=== PATIENT | male | born 1975 | race Two or more races ===

== ENCOUNTER 2018-12-06 08:12 | Inpatient (IN) | payer SELFPAY ==
[2018-12-06] VITALS (8 sets, daily range): BP systolic 98–111; BP diastolic 58–71
[~2018-12-06] VITALS: Ht 170.2 cm; Wt 81.6 kg
[2018-12-06] MEDS ORDERED: IV NORMAL SALINE 1000ML BAG 1,000 ML IV SCH (08:45)
--- NOTE | 2018-12-06 08:55 | PHYS DOC ---
Adult General Chief Complaint Chief Complaint: ABDOMINAL PAIN HPI HPI Patient is a 42 year old male who presents with right lower Abdominal pain that radiates throughout general abdomen x 2 days. Rates his pain 10 out 10 and states it is sharp. Patient last took Advil this morning at 6 AM. Review of Systems Review of Systems Constitutional: Denies fever or chills [] Eyes: Denies change in visual acuity, redness, or eye pain [] HENT: Denies nasal congestion or sore throat [] Respiratory: Denies cough or shortness of breath [] Cardiovascular: No additional information not addressed in HPI [] GI: RLQ abdominal pain, denies nausea, vomiting, bloody stools or diarrhea [] : Denies dysuria or hematuria [] Musculoskeletal: Denies back pain or joint pain [] Integument: Denies rash or skin lesions [] Neurologic: Denies headache, focal weakness or sensory changes [] All other systems were reviewed and found to be within normal limits, except as documented in this note. Current Medications Current Medications Current Medications Medications (Trade) Dose Ordered Sig/Formerly [facility] Start Time Stop Time Status Last Admin Dose Admin Fentanyl Citrate (Fentanyl 2ml Vial) 50 mcg 1X ONCE 12/06/18 10:45 12/06/18 10:49 DC 12/06/18 11:11 50 MCG Info (CONTRAST GIVEN -- Rx MONITORING) 1 each PRN DAILY PRN 12/06/18 09:15 12/08/18 09:14 Iohexol (Omnipaque 300 Mg/ml) 75 ml 1X ONCE 12/06/18 09:15 12/06/18 09:16 DC 12/06/18 09:15 75 ML Ondansetron HCl (Zofran) 4 mg 1X ONCE 12/06/18 09:30 12/06/18 09:31 DC 12/06/18 09:18 4 MG Sodium Chloride 1,000 ml @ 1,000 mls/hr 1X ONCE 12/06/18 10:45 12/06/18 11:44 DC Allergies Allergies Allergies Coded Allergies Type Severity Reaction Last Updated Verified No Known Drug Allergies 12/06/18 No Physical Exam Physical Exam Constitutional: Well developed, well nourished, no acute distress, non-toxic appearance. [] HENT: Normocephalic, atraumatic, bilateral external ears normal, oropharynx moist, no oral exudates, nose normal. [] Eyes: PERRLA, EOMI, conjunctiva normal, no discharge. [] Neck: Normal range of motion, no tenderness, supple, no stridor. [] Cardiovascular:Heart rate regular rhythm, no murmur [] Lungs & Thorax: Bilateral breath sounds clear to auscultation [] Abdomen: Bowel sounds normal, soft, RLQ tenderness, no masses, no pulsatile masses. [] Skin: Warm, dry, no erythema, no rash. [] Back: No tenderness, no CVA tenderness. [] Extremities: No tenderness, no cyanosis, no clubbing, ROM intact, no edema. [] Neurologic: Alert and oriented X 3, normal motor function, normal sensory function, no focal deficits noted. [] Psychologic: Affect normal, judgement normal, mood normal. [] Current Patient Data Vital Signs Vital Signs Date Time Temp Pulse Resp B/P (MAP) Pulse Ox O2 Delivery O2 Flow Rate FiO2 12/06/18 10:45 82 18 125/73 (90) 97 Room Air 12/06/18 08:46 97.9 97.9 Lab Values Laboratory Tests Test 12/06/18 09:10 12/06/18 09:15 Urine Collection Type Unknown Urine Color Tiffany Urine Clarity Clear Urine pH 6.0 Urine Specific [place] 1.020 Urine Protein Negative mg/dL (NEG-TRACE) Urine Glucose (UA) Negative mg/dL (NEG) Urine Ketones (Stick) Negative mg/dL (NEG) Urine Blood Negative (NEG) Urine Nitrite Negative (NEG) Urine Bilirubin Negative (NEG) Urine Urobilinogen Dipstick 0.2 mg/dL (0.2 mg/dL) Urine Leukocyte Esterase Negative (NEG) Urine RBC Occ /HPF (0-2) Urine WBC 1-4 /HPF (0-4) Urine Squamous Epithelial Cells Occ /LPF Urine Bacteria Few /HPF (0-FEW) Urine Mucus Marked /LPF White Blood Count 17.3 x10^3/uL (4.0-11.0) H Red Blood Count 5.00 x10^6/uL (4.30-5.70) Hemoglobin 15.7 g/dL (13.0-17.5) Hematocrit 46.0 % (39.0-53.0) Mean Corpuscular Volume 92 fL (79-100) Mean Corpuscular Hemoglobin 31 pg (25-35) Mean Corpuscular Hemoglobin Concent 34 g/dL (31-37) Red Cell Distribution Width 13.0 % (11.5-14.5) Platelet Count 208 x10^3/uL (140-400) Neutrophils (%) (Auto) 79 % (31-73) H Lymphocytes (%) (Auto) 11 % (24-48) L Monocytes (%) (Auto) 9 % (0-9) Eosinophils (%) (Auto) 1 % (0-3) Basophils (%) (Auto) 0 % (0-3) Neutrophils # (Auto) 13.6 x10^3uL (1.8-7.7) H Lymphocytes # (Auto) 1.9 x10^3/uL (1.0-4.8) Monocytes # (Auto) 1.6 x10^3/uL (0.0-1.1) H Eosinophils # (Auto) 0.2 x10^3/uL (0.0-0.7) Basophils # (Auto) 0.0 x10^3/uL (0.0-0.2) Platelet Estimate Pending Sodium Level 140 mmol/L (136-145) Potassium Level 3.8 mmol/L (3.5-5.1) Chloride Level 100 mmol/L (98-107) Carbon Dioxide Level 29 mmol/L (21-32) Anion Gap 11 (6-14) Blood Urea Nitrogen 8 mg/dL (8-26) Creatinine 1.0 mg/dL (0.7-1.3) Estimated GFR (Cockcroft-Gault) 82.3 BUN/Creatinine Ratio 8 (6-20) Glucose Level 106 mg/dL (70-99) H Calcium Level 8.9 mg/dL (8.5-10.1) Total Bilirubin 1.0 mg/dL (0.2-1.0) Aspartate Amino Transferase (AST) 19 U/L (15-37) Alanine Aminotransferase (ALT) 26 U/L (16-63) Alkaline Phosphatase 82 U/L (46-116) Total Protein 8.0 g/dL (6.4-8.2) Albumin 3.4 g/dL (3.4-5.0) Albumin/Globulin Ratio 0.7 (1.0-1.7) L Lipase 54 U/L (73-393) L Laboratory Tests 12/06/18 09:15 Laboratory Tests 12/06/18 09:15 EKG EKG [] Radiology/Procedures Radiology/Procedures [] Impressions: [facility] [address] [place] [address] IMAGING REPORT Signed PATIENT: CARMEL MALCOLM ACCOUNT: [id number] : 1975 LOCATION: ER AGE: 42 SEX: M EXAM STATUS: REG ER ORD. PHYSICIAN: ALICIA BUNDY APRN REASON: Right lower abd pain PROCEDURE: CT ABD PELV W/ IV CONTRST ONLY Examination: CT ABD PELV W/ IV CONTRST ONLY History: RLQ ABDOMEN PAIN, H/O KIDNEY STONES
IV OMNI 300 75 MLS Comparison/Correlation: None Findings: Axial images of the abdomen and pelvis were obtained following IV contrast. Sagittal and coronal reformatted images were provided. Linear atelectasis involving the right lung base is evident. Minimal linear atelectasis of the left lung base is present. Calcified granuloma involves the right middle lobe basilar aspect. Liver, spleen, pancreas, and adrenal glands are normal. Left kidney is normal. Gallbladder fossa is normal. Several calculi are present involving the right renal inferior pole calyces. Largest of these is 0.9 cm diameter. Edema superficially about right Gerota's fascia is noted. Right paracolic gutter stranding is notable. The appendix is distended distally. There is question of a gas collection along the posterior aspect of the distal appendix best seen on axial image 54 of series 2. This measures up to 1.6 cm. No enhancing collection. There is suggestion of edema or ill-defined small fluid collection measuring 1.4 cm x 0.7 cm anterior to the right psoas muscle at the upper pelvic level. No bowel obstruction or extraluminal gas. Urinary bladder is unremarkable. Bony structures are unremarkable for age. Impression: Acute appendicitis. Possibility of localized perforation is raised. No definite or significant abscess collection. Nonobstructive right renal lower pole calyceal calculi. Minimal linear atelectasis at the lung bases greater on the right. On 12/06/2018 at 10:22 AM, results reported to nurse practitioner assigned to the patient by the name of Alicia. PQRS Compliance Statement: One or more of the following individualized dose reduction techniques were utilized for this examination: 1. Automated exposure control 2. Adjustment of the mA and/or kV according to patient size 3. Use of iterative reconstruction technique Electronically signed by: Guerrero Hickman MD (12/06/2018 10:24 AM) [id number] DICTATED and SIGNED BY: GUERRERO HICKMAN MD DATE: 12/06/18 1009 Course & Med Decision Making Course & Med Decision Making Patient is a 42 year old male who presents with right lower Abdominal pain that radiates throughout general abdomen x 2 days. Rates his pain 10 out 10 and states it is sharp. Patient last took Advil this morning at 6 AM. Patient denies nausea, vomiting, diarrhea, constipation, fever, dysuria, chest pain, shortness of air. Lungs are clear to auscultation lobes. Heart rate regular without murmur. Patient has no peripheral edema. Abdomen is soft and tender only to the right lower quadrant. Pain is worse with pressure from palpation. Pain does not get worse when I release pressure from palpation. Alert and oriented. Skin pink warm and dry. Mucus membranes are moist. Weeks in full clear sentences. Ambulatory with a steady gait. Afebrile. Vital signs within normal limits. CT shows Acute appendicitis. Possibility of localized perforation is raised. No definite or significant abscess collection. Nonobstructive right renal lower pole calyceal calculi. Minimal linear atelectasis at the lung bases greater on the right. The radiologist called and stated results to me personally. Patient will be started on more IV fluids and will remain nothing by mouth. I will start him on Zosyn antibiotic. 1040: I went in and told the patient of the results and asked when the last time he ate or drank was and the girlfriend states she just gave him a piece of a donut to eat at about 1020. I reminded the patient and family that the patient can not eat or drink. 1052: I have spoken to Dr Beck about the patient and Dr Correa for admission. Dragon Disclaimer Dragon Disclaimer This electronic medical record was generated, in whole or in part, using a voice recognition dictation system. Departure Departure Impression: Primary Impression: Acute appendicitis Disposition: ADMITTED INPATIENT Admitting Physician: Other Condition: STABLE Referrals: NO PCP (PCP) Problem Qualifiers Primary Impression: Acute appendicitis Acute appendicitis type: unspecified acute appendicitis type Qualified Codes : K35.80 - Unspecified acute appendicitis ALICIA BUNDY CLAIM REVIEW MEDICAL DIRECTOR Dec 06, 2018 08:55
[2018-12-06] MEDS ORDERED: IOHEXOL 300 MG/ML 100ML VIAL. IV ONE (09:15)
[2018-12-06] MEDS ORDERED: CONTRAST GIVEN. MC PRN (09:15)
[2018-12-06] MEDS ORDERED: ONDANSETRON PF 4 MG/2 ML VIAL. IV ONE (09:30)
[2018-12-06] MEDS ORDERED: fentaNYL PF VIAL 100 MCG/2 ML VIAL IV ONE ×2 (09:30→10:45)
[2018-12-06 09:38] LABS: BASO % 0 % (0-3); EOS # 0.2 x10^3/uL (0.0-0.7); EOS % 1 % (0-3); HEMOGLOBIN 15.7 g/dL (13.0-17.5); LYMPH # 1.9 x10^3/uL (1.0-4.8); LYMPH % 11 % (24-48); MEAN CORPUSCULAR HEMOGLOBIN 31 pg (25-35); MEAN CORPUSCULAR HGB CONC 34 g/dL (31-37); MEAN CORPUSCULAR VOLUME 92 fL (79-100); MONO # 1.6 x10^3/uL (0.0-1.1); MONO % 9 % (0-9); NEUT # 13.6 x10^3uL (1.8-7.7); NEUT % 79 % (31-73); PLATELET COUNT 208 x10^3/uL (140-400); WHITE BLOOD COUNT 17.3 x10^3/uL (4.0-11.0)
[2018-12-06 09:40] LABS: BILIRUBIN,URINE NEGATIVE (NEG); CLARITY,URINE CLEAR; COLOR,URINE AMBER; NITRITE,URINE NEGATIVE (NEG); PROTEIN,URINE NEGATIVE (NEG-TRACE); UROBILINOGEN,URINE 0.2 mg/dL (0.2 mg/dL)
[2018-12-06 09:41] LABS: CALCIUM 8.9 mg/dL (8.5-10.1); GFR 82.3; POTASSIUM 3.8 mmol/L (3.5-5.1)
[2018-12-06 09:47] LABS: ALBUMIN 3.4 g/dL (3.4-5.0); ALBUMIN/GLOBULIN RATIO 0.7 (1.0-1.7)
[2018-12-06 09:55] LABS: BACTERIA,URINE FEW /HPF (0-FEW); RBC,URINE OCC /HPF (0-2); SQUAMOUS EPITHELIAL CELL,UR OCC /LPF
--- NOTE | 2018-12-06 10:27 | RAD ---
Examination: CT ABD PELV W/ IV CONTRST ONLY History: RLQ ABDOMEN PAIN, H/O KIDNEY STONES
IV OMNI 300 75 MLS Comparison/Correlation: None Findings: Axial images of the abdomen and pelvis were obtained following IV contrast. Sagittal and coronal reformatted images were provided. Linear atelectasis involving the right lung base is evident. Minimal linear atelectasis of the left lung base is present. Calcified granuloma involves the right middle lobe basilar aspect. Liver, spleen, pancreas, and adrenal glands are normal. Left kidney is normal. Gallbladder fossa is normal. Several calculi are present involving the right renal inferior pole calyces. Largest of these is 0.9 cm diameter. Edema superficially about right Gerota's fascia is noted. Right paracolic gutter stranding is notable. The appendix is distended distally. There is question of a gas collection along the posterior aspect of the distal appendix best seen on axial image 54 of series 2. This measures up to 1.6 cm. No enhancing collection. There is suggestion of edema or ill-defined small fluid collection measuring 1.4 cm x 0.7 cm anterior to the right psoas muscle at the upper pelvic level. No bowel obstruction or extraluminal gas. Urinary bladder is unremarkable. Bony structures are unremarkable for age. Impression: Acute appendicitis. Possibility of localized perforation is raised. No definite or significant abscess collection. Nonobstructive right renal lower pole calyceal calculi. Minimal linear atelectasis at the lung bases greater on the right. On 12/06/2018 at 10:22 AM, results reported to nurse practitioner assigned to the patient by the name of Alicia. PQRS Compliance Statement: One or more of the following individualized dose reduction techniques were utilized for this examination: 1. Automated exposure control 2. Adjustment of the mA and/or kV according to patient size 3. Use of iterative reconstruction technique Electronically signed by: Guerrero Jackson MD (12/06/2018 10:24 AM) [id number]
[2018-12-06] MEDS ORDERED: IV NORMAL SALINE 1000ML BAG 1,000 ML IV ONE (10:45)
[2018-12-06] MEDS ORDERED: ONDANSETRON PF 4 MG/2 ML VIAL. IV PRN ×2 (11:00→20:45)
[2018-12-06] MEDS ORDERED: PIPERACILLIN/TAZOBACTAM 3.375 GM in IV NORMAL SALINE 50ML 50 ML IV ONE (11:00)
[2018-12-06] MEDS: IV NORMAL SALINE 1000ML BAG 1,000 ML IV SCH ×2 (11:09→23:19)
--- NOTE | 2018-12-06 12:17 | PDOC1 ---
History and Physical Date of Admission Date of Admission DATE: 12/06/18 TIME: 12:04 Identification/Chief Complaint Chief Complaint Abdominal Pain Source Source: Caregiver, Chart review, Patient History of Present Illness History of Present Illness Mr Mon is a 42 yo male w/ PMHx recurrent right nephrolithiasis who presents with 1 day history of diffuse abdominal pain worse periumbilical and RLQ. Rates his pain 10 out 10 and states it is sharp. Patient last took Advil this morning at 6 AM. In ED notably with leukocytosis 17.[address] with [address] shift and CT abdomen/pelvis with acute appendicitis. General surgery called by ED. Past Medical History Cardiovascular: No pertinent hx Pulmonary: No pertinent hx GI: No pertinent hx Heme/Onc: No pertinent hx Hepatobiliary: No pertinent hx Psych: No pertinent hx Rheumatologic: No pertinent hx Infectious disease: No pertinent hx ENT: No pertinent hx Renal/: Other (Nephrolithiasis) Endocrine: No pertinent hx Dermatology: No pertinent hx Past Surgical History Past Surgical History: Other (ESWL on right) Family History Family History: High Cholestrol, Hypertension Social History Smoke: No ALCOHOL: rare Drugs: None Current Medications Current Medications Current Medications Sodium Chloride 1,000 ml @ 1,000 mls/hr Q1H IV Last administered on 12/06/18at 09:19; Start 12/06/18 at 08:45; Stop 12/06/18 at 09:44; Status DC Fentanyl Citrate (Fentanyl 2ml Vial) 50 mcg 1X ONCE IV Last administered on 12/06/18at 09:19; Start 12/06/18 at 09:30; Stop 12/06/18 at 09:31; Status DC Ondansetron HCl (Zofran) 4 mg 1X ONCE IV Last administered on 12/06/18at 09:18; Start 12/06/18 at 09:30; Stop 12/06/18 at 09:31; Status DC Iohexol (Omnipaque 300 Mg/ml) 75 ml 1X ONCE IV Last administered on 12/06/18at 09:15; Start 12/06/18 at 09:15; Stop 12/06/18 at 09:16; Status DC Info (CONTRAST GIVEN -- Rx MONITORING) 1 each PRN DAILY PRN MC SEE COMMENTS; Start 12/06/18 at 09:15; Stop 12/08/18 at 09:14 Fentanyl Citrate (Fentanyl 2ml Vial) 50 mcg 1X ONCE IV Last administered on 12/06/18at 11:11; Start 12/06/18 at 10:45; Stop 12/06/18 at 10:49; Status DC Sodium Chloride 1,000 ml @ 1,000 mls/hr 1X ONCE IV ; Start 12/06/18 at 10:45; Stop 12/06/18 at 11:44; Status DC Piperacillin Sod/ Tazobactam Sod 3.375 gm/Sodium Chloride 50 ml @ 100 mls/hr 1X ONCE IV Last administered on 12/06/18at 10:59; Start 12/06/18 at 11:00; Stop 12/06/18 at 11:29; Status DC Ondansetron HCl (Zofran) 4 mg PRN Q8HRS PRN IV NAUSEA/VOMITING; Start 12/06/18 at 11:00; Stop 12/07/18 at 10:59 Fentanyl Citrate (Fentanyl 2ml Vial) 50 mcg PRN Q1HR PRN IV PAIN; Start at 11:00; Stop 12/07/18 at 10:59 Sodium Chloride 1,000 ml @ 80 mls/hr [id number] IV Last administered on 12/06/18at 11:09; Start 12/06/18 at 10:49; Stop 12/07/18 at 10:48 Allergies Allergies: Coded Allergies: No Known Drug Allergies (Unverified , 12/06/18) ROS General: YES: Chills, Night Sweats, Fatigue, Malaise, Appetite; No: Other PSYCHOLOGICAL ROS: No: Anxiety, Behavioral Disorder, Concentration difficultie , Decreased libido, Depression, Disorientation, Hallucinations, Hostility, Irritablity, Memory difficulties, Mood Swings, Obsessive thoughts, Physical abuse, Sexual abuse, Sleep disturbances, Suicidal ideation, Other Eyes: No Blurry vision, No Decreased vision, No Double vision, No Dry eyes, No Excessive tearing, No Eye Pain, No Itchy Eyes, No Loss of vision, No Photophobia , No Scotomata, No Uses contacts, No Uses glasses, No Other HEENT: No: Heacaches, Visual Changes, Hearing change, Nasal congestion, Nasal discharge, Oral lesions, Sinus pain, Sore Throat, Epistaxis, Sneezing, Snoring, Tinnitus, Vertigo, Vocal changes, Other ALLERGY AND IMMUNOLOGY: No: Hives, Insect Bite Sensitivity, Itchy/Watery Eyes, Nasal Congestion, Post Nasal Drip, Seasonal Allergies, Other Hematological and Lymphatic: No: Bleeding Problems, Blood Clots, Blood Transfusions, Brusing, Night Sweats, Pallor, Swollen Lymph Nodes, Other ENDOCRINE: No: Breast Changes, Galactorrhea, Hair Pattern Changes, Hot Flashes , Malaise/lethargy, Mood Swings, Palpitations, Polydipsia/polyuria, Skin Changes , Temperature Intolerance, Unexpected Weight Changes, Other Breast: No New/Changing Breast Lumps, No Nipple changes, No Nipple discharge, No Other Respiratory: No: Cough, Hemoptysis, Orthopnea, Pleuritic Pain, Shortness of breath, SOB with excertion, Sputum Changes, Stridor, Tachypnea, Wheezing, Other Cardiovascular: No Chest Pain, No Palpitations, No Orthopnea, No Paroxysmal Noc. Dyspnea, No Edema, No Lt Headedness, No Other Gastrointestinal: Yes Nausea, Yes Vomiting, Yes Abdominal Pain; No Diarrhea, No Constipation, No Melena, No Hematochezia, No Other Genitourinary: No Dysuria, No Frequency, No Incontinence, No Hematuria, No Retention, No Discharge, No Urgency, No Pain, No Flank Pain, No Other, No , No , No , No , No , No , No Musculoskeletal: No Gait Disturbance, No Joint Pain, No Joint Stiffness, No Joint Swelling, No Muscle Pain, No Muscular Weakness, No Pain In:, No Swelling In:, No Other Neurological: No Behavorial Changes, No Bowel/Bladder ControlChng, No Confusion , No Dizziness, No Gait Disturbance, No Headaches, No Impaired Coord/balance, No Memory Loss, No Numbness/Tingling, No Seizures, No Speech Problems, No Tremors, No Visual Changes, No Weakness, No Other Skin: No Dry Skin, No Eczema, No Hair Changes, No Lumps, No Mole Changes, No Mottling, No Nail Changes, No Pruritus, No Rash, No Skin Lesion Changes, No Other, No Acne Physical Exam General: Alert, Oriented X3, Cooperative, No acute distress HEENT: Atraumatic, PERRLA, EOMI, Mucous membr. moist/pink Lungs: Clear to auscultation, Normal air movement Heart: S1S2, RRR, no gallops, no murmurs Abdomen: Normal bowel sounds, Soft, No hepatosplenomegaly, No masses, Other ( RLQ and LLQ tender, periumbilical tender) Male Genitals Exam: normal genitalia, normal prostate Rectal Exam: not examined Extremities: No clubbing, No cyanosis, No edema, Normal pulses, No tenderness/ swelling Skin: No rashes, No breakdown, No significant lesion Neuro: Normal gait, Normal speech, Strength at 5/5 X4 ext, Normal tone, Sensation intact, Cranial nerves 3-12 NL, Reflexes 2+ Psych/Mental Status: Mental status NL, Mood NL Vitals Vitals Vital Signs Date Time Temp Pulse Resp B/P (MAP) Pulse Ox O2 Delivery O2 Flow Rate FiO2 12/06/18 11:40 92 18 118/72 (87) 97 Room Air 12/06/18 08:46 97.9 97.9 Labs Labs Laboratory Tests Test 12/06/18 09:10 12/06/18 09:15 Urine Collection Type Unknown Urine Color Tiffany Urine Clarity Clear Urine pH 6.0 Urine Specific [place] 1.020 Urine Protein Negative mg/dL (NEG-TRACE) Urine Glucose (UA) Negative mg/dL (NEG) Urine Ketones (Stick) Negative mg/dL (NEG) Urine Blood Negative (NEG) Urine Nitrite Negative (NEG) Urine Bilirubin Negative (NEG) Urine Urobilinogen Dipstick 0.2 mg/dL (0.2 mg/dL) Urine Leukocyte Esterase Negative (NEG) Urine RBC Occ /HPF (0-2) Urine WBC 1-4 /HPF (0-4) Urine Squamous Epithelial Cells Occ /LPF Urine Bacteria Few /HPF (0-FEW) Urine Mucus Marked /LPF White Blood Count 17.3 x10^3/uL (4.0-11.0) Red Blood Count 5.00 x10^6/uL (4.30-5.70) Hemoglobin 15.7 g/dL (13.0-17.5) Hematocrit 46.0 % (39.0-53.0) Mean Corpuscular Volume 92 fL (79-100) Mean Corpuscular Hemoglobin 31 pg (25-35) Mean Corpuscular Hemoglobin Concent 34 g/dL (31-37) Red Cell Distribution Width 13.0 % (11.5-14.5) Platelet Count 208 x10^3/uL (140-400) Neutrophils (%) (Auto) 79 % (31-73) Lymphocytes (%) (Auto) 11 % (24-48) Monocytes (%) (Auto) 9 % (0-9) Eosinophils (%) (Auto) 1 % (0-3) Basophils (%) (Auto) 0 % (0-3) Neutrophils # (Auto) 13.6 x10^3uL (1.8-7.7) Lymphocytes # (Auto) 1.9 x10^3/uL (1.0-4.8) Monocytes # (Auto) 1.6 x10^3/uL (0.0-1.1) Eosinophils # (Auto) 0.2 x10^3/uL (0.0-0.7) Basophils # (Auto) 0.0 x10^3/uL (0.0-0.2) Sodium Level 140 mmol/L (136-145) Potassium Level 3.8 mmol/L (3.5-5.1) Chloride Level 100 mmol/L (98-107) Carbon Dioxide Level 29 mmol/L (21-32) Anion Gap 11 (6-14) Blood Urea Nitrogen 8 mg/dL (8-26) Creatinine 1.0 mg/dL (0.7-1.3) Estimated GFR (Cockcroft-Gault) 82.3 BUN/Creatinine Ratio 8 (6-20) Glucose Level 106 mg/dL (70-99) Calcium Level 8.9 mg/dL (8.5-10.1) Total Bilirubin 1.0 mg/dL (0.2-1.0) Aspartate Amino Transf (AST/SGOT) 19 U/L (15-37) Alanine Aminotransferase (ALT/SGPT) 26 U/L (16-63) Alkaline Phosphatase 82 U/L (46-116) Total Protein 8.0 g/dL (6.4-8.2) Albumin 3.4 g/dL (3.4-5.0) Albumin/Globulin Ratio 0.7 (1.0-1.7) Lipase 54 U/L (73-393) Laboratory Tests Test 12/06/18 09:10 12/06/18 09:15 Urine Collection Type Unknown Urine Color Tiffany Urine Clarity Clear Urine pH 6.0 Urine Specific [place] 1.020 Urine Protein Negative mg/dL (NEG-TRACE) Urine Glucose (UA) Negative mg/dL (NEG) Urine Ketones (Stick) Negative mg/dL (NEG) Urine Blood Negative (NEG) Urine Nitrite Negative (NEG) Urine Bilirubin Negative (NEG) Urine Urobilinogen Dipstick 0.2 mg/dL (0.2 mg/dL) Urine Leukocyte Esterase Negative (NEG) Urine RBC Occ /HPF (0-2) Urine WBC 1-4 /HPF (0-4) Urine Squamous Epithelial Cells Occ /LPF Urine Bacteria Few /HPF (0-FEW) Urine Mucus Marked /LPF White Blood Count 17.3 x10^3/uL (4.0-11.0) Red Blood Count 5.00 x10^6/uL (4.30-5.70) Hemoglobin 15.7 g/dL (13.0-17.5) Hematocrit 46.0 % (39.0-53.0) Mean Corpuscular Volume 92 fL (79-100) Mean Corpuscular Hemoglobin 31 pg (25-35) Mean Corpuscular Hemoglobin Concent 34 g/dL (31-37) Red Cell Distribution Width 13.0 % (11.5-14.5) Platelet Count 208 x10^3/uL (140-400) Neutrophils (%) (Auto) 79 % (31-73) Lymphocytes (%) (Auto) 11 % (24-48) Monocytes (%) (Auto) 9 % (0-9) Eosinophils (%) (Auto) 1 % (0-3) Basophils (%) (Auto) 0 % (0-3) Neutrophils # (Auto) 13.6 x10^3uL (1.8-7.7) Lymphocytes # (Auto) 1.9 x10^3/uL (1.0-4.8) Monocytes # (Auto) 1.6 x10^3/uL (0.0-1.1) Eosinophils # (Auto) 0.2 x10^3/uL (0.0-0.7) Basophils # (Auto) 0.0 x10^3/uL (0.0-0.2) Sodium Level 140 mmol/L (136-145) Potassium Level 3.8 mmol/L (3.5-5.1) Chloride Level 100 mmol/L (98-107) Carbon Dioxide Level 29 mmol/L (21-32) Anion Gap 11 (6-14) Blood Urea Nitrogen 8 mg/dL (8-26) Creatinine 1.0 mg/dL (0.7-1.3) Estimated GFR (Cockcroft-Gault) 82.3 BUN/Creatinine Ratio 8 (6-20) Glucose Level 106 mg/dL (70-99) Calcium Level 8.9 mg/dL (8.5-10.1) Total Bilirubin 1.0 mg/dL (0.2-1.0) Aspartate Amino Transf (AST/SGOT) 19 U/L (15-37) Alanine Aminotransferase (ALT/SGPT) 26 U/L (16-63) Alkaline Phosphatase 82 U/L (46-116) Total Protein 8.0 g/dL (6.4-8.2) Albumin 3.4 g/dL (3.4-5.0) Albumin/Globulin Ratio 0.7 (1.0-1.7) Lipase 54 U/L (73-393) Images Images CT abdomen/pelvis Acute appendicitis. Possibility of localized perforation is raised. No definite or significant abscess collection. Nonobstructive right renal lower pole calyceal calculi. Minimal linear atelectasis at the lung bases greater on the right. VTE Prophylaxis Ordered VTE Prophylaxis Devices: Yes VTE Pharmacological Prophylaxi: No Assessment/Plan Assessment/Plan A/P: Acute appendicitis - with leukocytosis, concerning CT findings. General surgery consulted. No contraindication to surgery if done today Sepsis - likely 2/2 appendicitis, though no necessary evidence of perforation. 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 May have inherited disorder FEN - NPO PPX - SCDs FULL CODE Inpatient for acute appendicitis and sepsis secondary to this, likely at least 2 midnights considering his age and possibility of perforation ARI LEVY MD Dec 06, 2018 12:17
[2018-12-06] MEDS: fentaNYL PF VIAL 100 MCG/2 ML VIAL IV PRN ×5 (12:29→23:23)
[2018-12-06 12:52] LABS: % ATYL 2 % (0-0); % BANDS 7 % (0-9); % LYMPHS 12 % (24-48); % MONOS 1 % (0-10); % SEGS 78 % (35-66); PLT ESTIMATE ADEQUATE (ADEQUATE)
--- NOTE | 2018-12-06 12:59 | PDOC2 ---
CONSULT Date of Consult Date of Consult DATE: 12/06/18 TIME: 12:51 Reason for Consult Reason for Consult: acute appendicitis with possible perforation Referring Physician Referring Physician: Dr Correa Identification/Chief Complaint Chief Complaint RLQ pain Source Source: Caregiver, Chart review, Patient History of Present Illness Reason for Visit: Omar is a 42 yo Chinese speaking male with a hx of right sided ureteral stones who had acute onset of right sided pain yesterday. CT done on presentation suggests and acute appendicitis with possible rupture (some air adjacent to process). We are asked to see for appendectomy Past Medical History Cardiovascular: No pertinent hx Pulmonary: No pertinent hx GI: No pertinent hx Heme/Onc: No pertinent hx Hepatobiliary: No pertinent hx Psych: No pertinent hx Rheumatologic: No pertinent hx Infectious disease: No pertinent hx ENT: No pertinent hx Renal/: Other (Nephrolithiasis) Endocrine: No pertinent hx Dermatology: No pertinent hx Past Surgical History Past Surgical History: Other (ESWL on right) Family History Family History: High Cholestrol, Hypertension Social History No ALCOHOL: occassional Drugs: None Current Problem List Problem List Problems Medical Problems: (1) Acute appendicitis Status: Acute Current Medications Current Medications Current Medications Sodium Chloride 1,000 ml @ 1,000 mls/hr Q1H IV Last administered on 12/06/18at 09:19; Start 12/06/18 at 08:45; Stop 12/06/18 at 09:44; Status DC Fentanyl Citrate (Fentanyl 2ml Vial) 50 mcg 1X ONCE IV Last administered on 12/06/18at 09:19; Start 12/06/18 at 09:30; Stop 12/06/18 at 09:31; Status DC Ondansetron HCl (Zofran) 4 mg 1X ONCE IV Last administered on 12/06/18at 09:18; Start 12/06/18 at 09:30; Stop 12/06/18 at 09:31; Status DC Iohexol (Omnipaque 300 Mg/ml) 75 ml 1X ONCE IV Last administered on 12/06/18at 09:15; Start 12/06/18 at 09:15; Stop 12/06/18 at 09:16; Status DC Info (CONTRAST GIVEN -- Rx MONITORING) 1 each PRN DAILY PRN MC SEE COMMENTS; Start 12/06/18 at 09:15; Stop 12/08/18 at 09:14 Fentanyl Citrate (Fentanyl 2ml Vial) 50 mcg 1X ONCE IV Last administered on 12/06/18at 11:11; Start 12/06/18 at 10:45; Stop 12/06/18 at 10:49; Status DC Sodium Chloride 1,000 ml @ 1,000 mls/hr 1X ONCE IV ; Start 12/06/18 at 10:45; Stop 12/06/18 at 11:44; Status DC Piperacillin Sod/ Tazobactam Sod 3.375 gm/Sodium Chloride 50 ml @ 100 mls/hr 1X ONCE IV Last administered on 12/06/18at 10:59; Start 12/06/18 at 11:00; Stop 12/06/18 at 11:29; Status DC Ondansetron HCl (Zofran) 4 mg PRN Q8HRS PRN IV NAUSEA/VOMITING; Start 12/06/18 at 11:00; Stop 12/07/18 at 10:59 Fentanyl Citrate (Fentanyl 2ml Vial) 50 mcg PRN Q1HR PRN IV PAIN Last administered on 12/06/18at 12:29; Start 12/06/18 at 11:00; Stop 12/07/18 at 10:59 Sodium Chloride 1,000 ml @ 80 mls/hr [id number] IV Last administered on 12/06/18at 11:09; Start 12/06/18 at 10:49; Stop 12/07/18 at 10:48 Allergies Allergies: Coded Allergies: No Known Drug Allergies (Unverified , 12/06/18) ROS General: YES: Chills, Other (fever) Gastrointestinal: Yes Abdominal Pain Physical Exam General: Alert, No acute distress HEENT: Atraumatic Lungs: Normal air movement Heart: Regular rate Abdomen: Soft, Other (TTP in the RLQ ) Skin: Other (warm, dry) Vitals VITALS Vital Signs Date Time Temp Pulse Resp B/P (MAP) Pulse Ox O2 Delivery O2 Flow Rate FiO2 12/06/18 12:29 Room Air 12/06/18 12:00 98.1 85 16 105/68 (80) 96 98.1 Labs Labs Laboratory Tests Test 12/06/18 09:10 12/06/18 09:15 Urine Collection Type Unknown Urine Color Tiffany Urine Clarity Clear Urine pH 6.0 Urine Specific Lorane 1.020 Urine Protein Negative mg/dL (NEG-TRACE) Urine Glucose (UA) Negative mg/dL (NEG) Urine Ketones (Stick) Negative mg/dL (NEG) Urine Blood Negative (NEG) Urine Nitrite Negative (NEG) Urine Bilirubin Negative (NEG) Urine Urobilinogen Dipstick 0.2 mg/dL (0.2 mg/dL) Urine Leukocyte Esterase Negative (NEG) Urine RBC Occ /HPF (0-2) Urine WBC 1-4 /HPF (0-4) Urine Squamous Epithelial Cells Occ /LPF Urine Bacteria Few /HPF (0-FEW) Urine Mucus Marked /LPF White Blood Count 17.3 x10^3/uL (4.0-11.0) Red Blood Count 5.00 x10^6/uL (4.30-5.70) Hemoglobin 15.7 g/dL (13.0-17.5) Hematocrit 46.0 % (39.0-53.0) Mean Corpuscular Volume 92 fL (79-100) Mean Corpuscular Hemoglobin 31 pg (25-35) Mean Corpuscular Hemoglobin Concent 34 g/dL (31-37) Red Cell Distribution Width 13.0 % (11.5-14.5) Platelet Count 208 x10^3/uL (140-400) Neutrophils (%) (Auto) 79 % (31-73) Lymphocytes (%) (Auto) 11 % (24-48) Monocytes (%) (Auto) 9 % (0-9) Eosinophils (%) (Auto) 1 % (0-3) Basophils (%) (Auto) 0 % (0-3) Neutrophils # (Auto) 13.6 x10^3uL (1.8-7.7) Lymphocytes # (Auto) 1.9 x10^3/uL (1.0-4.8) Monocytes # (Auto) 1.6 x10^3/uL (0.0-1.1) Eosinophils # (Auto) 0.2 x10^3/uL (0.0-0.7) Basophils # (Auto) 0.0 x10^3/uL (0.0-0.2) Sodium Level 140 mmol/L (136-145) Potassium Level 3.8 mmol/L (3.5-5.1) Chloride Level 100 mmol/L (98-107) Carbon Dioxide Level 29 mmol/L (21-32) Anion Gap 11 (6-14) Blood Urea Nitrogen 8 mg/dL (8-26) Creatinine 1.0 mg/dL (0.7-1.3) Estimated GFR (Cockcroft-Gault) 82.3 BUN/Creatinine Ratio 8 (6-20) Glucose Level 106 mg/dL (70-99) Calcium Level 8.9 mg/dL (8.5-10.1) Total Bilirubin 1.0 mg/dL (0.2-1.0) Aspartate Amino Transf (AST/SGOT) 19 U/L (15-37) Alanine Aminotransferase (ALT/SGPT) 26 U/L (16-63) Alkaline Phosphatase 82 U/L (46-116) Total Protein 8.0 g/dL (6.4-8.2) Albumin 3.4 g/dL (3.4-5.0) Albumin/Globulin Ratio 0.7 (1.0-1.7) Lipase 54 U/L (73-393) Laboratory Tests Test 12/06/18 09:10 12/06/18 09:15 Urine Collection Type Unknown Urine Color Tiffany Urine Clarity Clear Urine pH 6.0 Urine Specific Lorane 1.020 Urine Protein Negative mg/dL (NEG-TRACE) Urine Glucose (UA) Negative mg/dL (NEG) Urine Ketones (Stick) Negative mg/dL (NEG) Urine Blood Negative (NEG) Urine Nitrite Negative (NEG) Urine Bilirubin Negative (NEG) Urine Urobilinogen Dipstick 0.2 mg/dL (0.2 mg/dL) Urine Leukocyte Esterase Negative (NEG) Urine RBC Occ /HPF (0-2) Urine WBC 1-4 /HPF (0-4) Urine Squamous Epithelial Cells Occ /LPF Urine Bacteria Few /HPF (0-FEW) Urine Mucus Marked /LPF White Blood Count 17.3 x10^3/uL (4.0-11.0) Red Blood Count 5.00 x10^6/uL (4.30-5.70) Hemoglobin 15.7 g/dL (13.0-17.5) Hematocrit 46.0 % (39.0-53.0) Mean Corpuscular Volume 92 fL (79-100) Mean Corpuscular Hemoglobin 31 pg (25-35) Mean Corpuscular Hemoglobin Concent 34 g/dL (31-37) Red Cell Distribution Width 13.0 % (11.5-14.5) Platelet Count 208 x10^3/uL (140-400) Neutrophils (%) (Auto) 79 % (31-73) Lymphocytes (%) (Auto) 11 % (24-48) Monocytes (%) (Auto) 9 % (0-9) Eosinophils (%) (Auto) 1 % (0-3) Basophils (%) (Auto) 0 % (0-3) Neutrophils # (Auto) 13.6 x10^3uL (1.8-7.7) Lymphocytes # (Auto) 1.9 x10^3/uL (1.0-4.8) Monocytes # (Auto) 1.6 x10^3/uL (0.0-1.1) Eosinophils # (Auto) 0.2 x10^3/uL (0.0-0.7) Basophils # (Auto) 0.0 x10^3/uL (0.0-0.2) Sodium Level 140 mmol/L (136-145) Potassium Level 3.8 mmol/L (3.5-5.1) Chloride Level 100 mmol/L (98-107) Carbon Dioxide Level 29 mmol/L (21-32) Anion Gap 11 (6-14) Blood Urea Nitrogen 8 mg/dL (8-26) Creatinine 1.0 mg/dL (0.7-1.3) Estimated GFR (Cockcroft-Gault) 82.3 BUN/Creatinine Ratio 8 (6-20) Glucose Level 106 mg/dL (70-99) Calcium Level 8.9 mg/dL (8.5-10.1) Total Bilirubin 1.0 mg/dL (0.2-1.0) Aspartate Amino Transf (AST/SGOT) 19 U/L (15-37) Alanine Aminotransferase (ALT/SGPT) 26 U/L (16-63) Alkaline Phosphatase 82 U/L (46-116) Total Protein 8.0 g/dL (6.4-8.2) Albumin 3.4 g/dL (3.4-5.0) Albumin/Globulin Ratio 0.7 (1.0-1.7) Lipase 54 U/L (73-393) Images Images CT done on admission is reviewed Assessment/Plan Assessment/Plan acute appendicitis with possible perforation his significant other at the bedside help to translate he needs appendectomy will explain risks including but not limited to bleeding, infection, injury to bowel, bladder requiring further surgical interventions, possible need for an open procedure or this NOT being an acute appendicitis (i.e. cecal diverticulitis, gastroenteritis) he will proceed to OR later today (was given part of a donut to eat while in the ED by his girlfriend around 10:00) will follow Thanks for consult MAYA DEE MD Dec 06, 2018 12:59
--- NOTE | 2018-12-06 13:00 | NUR ---
Pt arrived to unit at noon, no family at bedside. Admission Dx Acute Appendicitis. Bed in low position, call light in reach, Pt not considered at risk for falls at this time. Allergies verified. Pt speaks Hebrew primarily but is able to understand Persian as well. Admission assessment in progress, consults called. Pt NPO, IVFs infusing.
--- NOTE | 2018-12-06 16:45 | NUR ---
Pt to OR by bed at this time. Clamped NS sent with Pt, report given to SARA Bender earlier this afternoon. No family at bedside.
[2018-12-06] MEDS ORDERED: fentaNYL PF VIAL 100 MCG/2 ML VIAL ONE (18:25)
[2018-12-06] MEDS ORDERED: LIDOCAINE 2% PF 5 ML VIAL. ONE ×2 (18:25→20:00)
[2018-12-06] MEDS ORDERED: PROPOFOL 20 ML IV ONE (18:25)
[2018-12-06] MEDS ORDERED: DEXAMETHASONE SOD PHOS 20 MG/5 ML VIAL. ONE (18:25)
[2018-12-06] MEDS ORDERED: DESFLURANE 31 TO 60 MINUTES IH ONE (18:25)
[2018-12-06] MEDS ORDERED: ROCURONIUM 50 MG/5 ML VIAL. ONE (18:25)
[2018-12-06] MEDS ORDERED: ONDANSETRON PF 4 MG/2 ML VIAL. ONE (18:26)
[2018-12-06] MEDS ORDERED: KETOROLAC 30 MG/ML INJ FOR OR. INJ ONE (18:26)
[2018-12-06] MEDS ORDERED: BUPIVAC MPF-EPI 0.5%-1:200000 30 ML VIAL. ONE (18:28)
[2018-12-06] MEDS ORDERED: NEOSTIGMINE 10 MG/10 ML VIAL. ONE (18:59)
[2018-12-06] MEDS ORDERED: GLYCOPYRROLATE 1 MG/5 ML VIAL. ONE (18:59)
[2018-12-06] MEDS ORDERED: 0.9 % SODIUM CHLORIDE 10 ML DISP.SYRIN. IV PRN (20:15)
--- NOTE | 2018-12-06 20:18 | PDOC ---
BRIEF OPERATIVE NOTE Date: Dec 06, 2018 Pre-Op Diagnosis perforated appendicitis Post-Op Diagnosis same Procedure Performed l/s ->open appendectomy Surgeon Kiran Anesthesia Type: General Blood Loss 125cc IV Fluid 1200cc Urine Output 200cc Specimens Obtained appendix Findings gangrenous appendicitis with perforation and abscess Complications none Operative Note WK # [id number] MAYA DEE MD Dec 06, 2018 20:17
[2018-12-06] MEDS ORDERED: IV RINGERS,LACTATED 1000ML 1,000 ML IV SCH (20:32)
--- NOTE | 2018-12-06 20:41 | RAD ---
KUB History: Postop KUB Comparison: None other than CT December 06, 2018 Findings: Single supine AP view of the abdomen is submitted. There are again right renal calculi. The entirety of the abdomen is not included. There are clips now present in the abdomen and pelvis. There is mild gas distention of small bowel in the left upper quadrant of the abdomen. Exam is insufficient for the evaluation for free air. No metallic instrument is identified. Impression: 1. There are right renal calculi. There is mild gas distention of the small bowel in the left upper quadrant of the abdomen, may be due to ileus. Electronically signed by: Thanh Swanson MD (12/06/2018 8:38 PM) [facility]
[2018-12-06] MEDS ORDERED: PROCHLORPERAZINE 10 MG/2 ML VIAL. IV PRN (20:45)
[2018-12-06] MEDS ORDERED: HYDROmorphone 2 MG/ML VIAL IV PRN (20:45)
[2018-12-06] MEDS ORDERED: LIDOCAINE 1% PF 2 ML VIAL. ID PRN (20:45)
[2018-12-06] MEDS ORDERED: MORPHINE SULFATE 4 MG/ML VIAL. IV PRN (20:45)
[2018-12-06] MEDS ORDERED: fentaNYL PF VIAL 100 MCG/2 ML VIAL IV PRN (20:45)
--- NOTE | 2018-12-06 20:58 | OP ---
DATE OF SURGERY: 12/06/2018 PREOPERATIVE DIAGNOSIS: Perforated appendicitis. POSTOPERATIVE DIAGNOSIS: Perforated appendicitis with abscess. PROCEDURE: Laparoscopic converted to open appendectomy. SURGEON: Jose Dee MD ANESTHESIA: General endotracheal. ESTIMATED BLOOD LOSS: 125. INTRAVENOUS FLUID: 1200. URINE OUTPUT: 200. DESCRIPTION OF PROCEDURE: The patient was brought to the operating suite, given a general endotracheal anesthetic. Herrera catheter placed to dependent drainage. The abdomen was prepped and draped in the usual sterile fashion. A supraumbilical incision was infiltrated with local anesthetic, incised and a 5 mm Visiport used to safely gain access into the abdominal cavity taking care to avoid injury to abdominal contents. Pneumoperitoneum was established, camera inserted and under direct vision the suprapubic port was placed. The supraumbilical port was converted to 12 mm for instrumentation and under direct vision a left lower quadrant 5 port was placed. With the table rolled to the left, we set about trying to identify and mobilize the appendix; however, it was gangrenous and densely adherent and as such after a time I opted to abandon the laparoscopic approach and convert to open. Table returned to level. Epigastric and suprapubic port incisions connected with the midline. Abdomen entered. Trocars removed. With the Omni self-retaining retractor for exposure, we were able to isolate the appendix and free it from the lateral attachments with cautery and/or LigaSure. Care was taken to avoid injury to the bowel. We were able to identify the base of the appendix, which was viable. This was transected with an Endo-YAS stapler tissue load. The mesoappendix was serially clamped, divided and ligated with 2-0 Vicryl ties to allow removal of the appendix. The area was cultured. Irrigated and checked for hemostasis. When present and first sponge count was correct, a 19-Omani round Addison drain was brought through a right-sided stab wound and left in the pericolic gutter and pelvis for postoperative drainage, secured with a silk stitch. We again checked for hemostasis and when present and a second sponge count was correct, the midline incision was closed in a single layer using looped 0 PDS in running fashion tied in the middle. Skin closed loosely with sabi. Telfa anuj placed. Postop foreign body film was negative for unexplained foreign body. Sterile dressings applied. Herrera catheter removed. The patient was awakened from his anesthetic and taken to the recovery room in satisfactory condition. JOSE DEE MD DR: FANI/john JOB#: [id number] / [id number]
[2018-12-06] MEDS: HYDROmorphone 2 MG/ML VIAL IV PRN (21:26)
[2018-12-06] MEDS: PIPERACILLIN/TAZOBACTAM 3.375 GM in IV NORMAL SALINE 50ML 50 ML IV SCH (21:27)
[2018-12-06] MEDS: POTASSIUM CL 20MEQ-0.45% NACL 1,000 ML IV SCH (21:27)
--- NOTE | 2018-12-06 22:58 | NUR ---
Pt. arrived on unit from PACU at 2100. VSS. Significant other at bedside. Patient asking for something to eat. This nurse explained orders that were given. Will continue to monitor.
[2018-12-07] MEDS: HYDROmorphone 2 MG/ML VIAL IV PRN ×6 (02:09→22:38)
[2018-12-07] MEDS: PIPERACILLIN/TAZOBACTAM 3.375 GM in IV NORMAL SALINE 50ML 50 ML IV SCH ×4 (02:14→18:22)
--- NOTE | 2018-12-07 02:45 | NUR ---
Pt. stated he felt "full." This nurse assessed abdomen and abdomen was distended & dressing was saturated. Dressing was changed. This nurse explained to him possible reason (abdominal inflation during surgery). Pt. got up to side of bed to urinate and stated he felt better. Still feels like he needs to pass gas and allowed pt. to sit up by side of bed. Will continue to monitor site and pt.
[2018-12-07 03:00] VITALS: BP 101/66
[2018-12-07] MEDS: fentaNYL PF VIAL 100 MCG/2 ML VIAL IV PRN ×3 (04:30→10:43)
[2018-12-07] MEDS: POTASSIUM CL 20MEQ-0.45% NACL 1,000 ML IV SCH ×2 (06:08→16:44)
[2018-12-07 07:00] VITALS: BP 112/66
--- NOTE | 2018-12-07 07:26 | NUR ---
Dr. Zimmerman and Dr. Lemos consulted this morning. Addendum: 12/07/18 at 0755 by GUERLINE BRYAN RN Wrong patient.
--- NOTE | 2018-12-07 08:18 | PDOC ---
PROGRESS NOTES Chief Complaint Chief Complaint A/P: Acute appendicitis - s/p open appendectomy Sepsis - likely 2/2 appendicitis with gangrene. 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 May have inherited disorder FEN - ADAT per surgery. Unknown if he is at risk of post op ileus PPX - SCDs FULL CODE Inpatient for acute appendicitis and sepsis secondary to this, likely at least 2 midnights considering his age and possibility of perforation History of Present Illness History of Present Illness Mr Mon is a 42 yo male w/ PMHx recurrent right nephrolithiasis who presents with 1 day history of diffuse abdominal pain worse periumbilical and RLQ who was found with leukocytosis 17.3 with left shift and CT abdomen/pelvis with acute appendicitis. General surgery called by ED and went for lap appy, converted to open 12/06/18 when it was noted to be gangrenous and adherent. Pain not much better today. He has appetite, however remains NPO. He wants to get back to work. Has been compliant with abdominal binder when up. Glucose was 137 while NPO this morning. Plan: Check A1c, may need sliding scale Zosyn 3 days, can convert to augmentin on d/c ADAT per surgery, will need to avoid feeding too early for risk of ileus. I will defer to the experts on this. Vitals Vitals Vital Signs Date Time Temp Pulse Resp B/P (MAP) Pulse Ox O2 Delivery O2 Flow Rate FiO2 12/07/18 07:00 97.8 87 16 112/66 (81) 90 Nasal Cannula 2.0 97.8 Physical Exam General: Alert, No acute distress Heart: Regular rate Lungs: Clear Abdomen: Soft, Other (TTP in the RLQ ) Extremities: No clubbing, No cyanosis, No edema, Normal pulses, No tenderness/ swelling Skin: Other (warm, dry) Labs LABS Laboratory Tests Test 12/06/18 09:10 12/06/18 09:15 Urine Collection Type Unknown Urine Color Tiffany Urine Clarity Clear Urine pH 6.0 Urine Specific [place] 1.020 Urine Protein Negative mg/dL (NEG-TRACE) Urine Glucose (UA) Negative mg/dL (NEG) Urine Ketones (Stick) Negative mg/dL (NEG) Urine Blood Negative (NEG) Urine Nitrite Negative (NEG) Urine Bilirubin Negative (NEG) Urine Urobilinogen Dipstick 0.2 mg/dL (0.2 mg/dL) Urine Leukocyte Esterase Negative (NEG) Urine RBC Occ /HPF (0-2) Urine WBC 1-4 /HPF (0-4) Urine Squamous Epithelial Cells Occ /LPF Urine Bacteria Few /HPF (0-FEW) Urine Mucus Marked /LPF White Blood Count 17.3 x10^3/uL (4.0-11.0) Red Blood Count 5.00 x10^6/uL (4.30-5.70) Hemoglobin 15.7 g/dL (13.0-17.5) Hematocrit 46.0 % (39.0-53.0) Mean Corpuscular Volume 92 fL (79-100) Mean Corpuscular Hemoglobin 31 pg (25-35) Mean Corpuscular Hemoglobin Concent 34 g/dL (31-37) Red Cell Distribution Width 13.0 % (11.5-14.5) Platelet Count 208 x10^3/uL (140-400) Neutrophils (%) (Auto) 79 % (31-73) Lymphocytes (%) (Auto) 11 % (24-48) Monocytes (%) (Auto) 9 % (0-9) Eosinophils (%) (Auto) 1 % (0-3) Basophils (%) (Auto) 0 % (0-3) Neutrophils # (Auto) 13.6 x10^3uL (1.8-7.7) Lymphocytes # (Auto) 1.9 x10^3/uL (1.0-4.8) Monocytes # (Auto) 1.6 x10^3/uL (0.0-1.1) Eosinophils # (Auto) 0.2 x10^3/uL (0.0-0.7) Basophils # (Auto) 0.0 x10^3/uL (0.0-0.2) Segmented Neutrophils % 78 % (35-66) Band Neutrophils % 7 % (0-9) Lymphocytes % 12 % (24-48) Atypical Lymphocytes % (Manual) 2 % (0-0) Monocytes % 1 % (0-10) Platelet Estimate Adequate (ADEQUATE) Giant Platelets Occ Sodium Level 140 mmol/L (136-145) Potassium Level 3.8 mmol/L (3.5-5.1) Chloride Level 100 mmol/L (98-107) Carbon Dioxide Level 29 mmol/L (21-32) Anion Gap 11 (6-14) Blood Urea Nitrogen 8 mg/dL (8-26) Creatinine 1.0 mg/dL (0.7-1.3) Estimated GFR (Cockcroft-Gault) 82.3 BUN/Creatinine Ratio 8 (6-20) Glucose Level 106 mg/dL (70-99) Calcium Level 8.9 mg/dL (8.5-10.1) Total Bilirubin 1.0 mg/dL (0.2-1.0) Aspartate Amino Transf (AST/SGOT) 19 U/L (15-37) Alanine Aminotransferase (ALT/SGPT) 26 U/L (16-63) Alkaline Phosphatase 82 U/L (46-116) Total Protein 8.0 g/dL (6.4-8.2) Albumin 3.4 g/dL (3.4-5.0) Albumin/Globulin Ratio 0.7 (1.0-1.7) Lipase 54 U/L (73-393) Assessment and Plan Assessmemt and Plan Problems Medical Problems: (1) Acute appendicitis Status: Acute Comment Review of Relevant I have reviewed the following items giovana (where applicable) has been applied. Labs Laboratory Tests Test 12/06/18 09:10 12/06/18 09:15 Urine Collection Type Unknown Urine Color Tiffany Urine Clarity Clear Urine pH 6.0 Urine Specific [place] 1.020 Urine Protein Negative mg/dL (NEG-TRACE) Urine Glucose (UA) Negative mg/dL (NEG) Urine Ketones (Stick) Negative mg/dL (NEG) Urine Blood Negative (NEG) Urine Nitrite Negative (NEG) Urine Bilirubin Negative (NEG) Urine Urobilinogen Dipstick 0.2 mg/dL (0.2 mg/dL) Urine Leukocyte Esterase Negative (NEG) Urine RBC Occ /HPF (0-2) Urine WBC 1-4 /HPF (0-4) Urine Squamous Epithelial Cells Occ /LPF Urine Bacteria Few /HPF (0-FEW) Urine Mucus Marked /LPF White Blood Count 17.3 x10^3/uL (4.0-11.0) Red Blood Count 5.00 x10^6/uL (4.30-5.70) Hemoglobin 15.7 g/dL (13.0-17.5) Hematocrit 46.0 % (39.0-53.0) Mean Corpuscular Volume 92 fL (79-100) Mean Corpuscular Hemoglobin 31 pg (25-35) Mean Corpuscular Hemoglobin Concent 34 g/dL (31-37) Red Cell Distribution Width 13.0 % (11.5-14.5) Platelet Count 208 x10^3/uL (140-400) Neutrophils (%) (Auto) 79 % (31-73) Lymphocytes (%) (Auto) 11 % (24-48) Monocytes (%) (Auto) 9 % (0-9) Eosinophils (%) (Auto) 1 % (0-3) Basophils (%) (Auto) 0 % (0-3) Neutrophils # (Auto) 13.6 x10^3uL (1.8-7.7) Lymphocytes # (Auto) 1.9 x10^3/uL (1.0-4.8) Monocytes # (Auto) 1.6 x10^3/uL (0.0-1.1) Eosinophils # (Auto) 0.2 x10^3/uL (0.0-0.7) Basophils # (Auto) 0.0 x10^3/uL (0.0-0.2) Segmented Neutrophils % 78 % (35-66) Band Neutrophils % 7 % (0-9) Lymphocytes % 12 % (24-48) Atypical Lymphocytes % (Manual) 2 % (0-0) Monocytes % 1 % (0-10) Platelet Estimate Adequate (ADEQUATE) Giant Platelets Occ Sodium Level 140 mmol/L (136-145) Potassium Level 3.8 mmol/L (3.5-5.1) Chloride Level 100 mmol/L (98-107) Carbon Dioxide Level 29 mmol/L (21-32) Anion Gap 11 (6-14) Blood Urea Nitrogen 8 mg/dL (8-26) Creatinine 1.0 mg/dL (0.7-1.3) Estimated GFR (Cockcroft-Gault) 82.3 BUN/Creatinine Ratio 8 (6-20) Glucose Level 106 mg/dL (70-99) Calcium Level 8.9 mg/dL (8.5-10.1) Total Bilirubin 1.0 mg/dL (0.2-1.0) Aspartate Amino Transf (AST/SGOT) 19 U/L (15-37) Alanine Aminotransferase (ALT/SGPT) 26 U/L (16-63) Alkaline Phosphatase 82 U/L (46-116) Total Protein 8.0 g/dL (6.4-8.2) Albumin 3.4 g/dL (3.4-5.0) Albumin/Globulin Ratio 0.7 (1.0-1.7) Lipase 54 U/L (73-393) Laboratory Tests Test 12/06/18 09:10 12/06/18 09:15 Urine Collection Type Unknown Urine Color Tiffany Urine Clarity Clear Urine pH 6.0 Urine Specific [place] 1.020 Urine Protein Negative mg/dL (NEG-TRACE) Urine Glucose (UA) Negative mg/dL (NEG) Urine Ketones (Stick) Negative mg/dL (NEG) Urine Blood Negative (NEG) Urine Nitrite Negative (NEG) Urine Bilirubin Negative (NEG) Urine Urobilinogen Dipstick 0.2 mg/dL (0.2 mg/dL) Urine Leukocyte Esterase Negative (NEG) Urine RBC Occ /HPF (0-2) Urine WBC 1-4 /HPF (0-4) Urine Squamous Epithelial Cells Occ /LPF Urine Bacteria Few /HPF (0-FEW) Urine Mucus Marked /LPF White Blood Count 17.3 x10^3/uL (4.0-11.0) Red Blood Count 5.00 x10^6/uL (4.30-5.70) Hemoglobin 15.7 g/dL (13.0-17.5) Hematocrit 46.0 % (39.0-53.0) Mean Corpuscular Volume 92 fL (79-100) Mean Corpuscular Hemoglobin 31 pg (25-35) Mean Corpuscular Hemoglobin Concent 34 g/dL (31-37) Red Cell Distribution Width 13.0 % (11.5-14.5) Platelet Count 208 x10^3/uL (140-400) Neutrophils (%) (Auto) 79 % (31-73) Lymphocytes (%) (Auto) 11 % (24-48) Monocytes (%) (Auto) 9 % (0-9) Eosinophils (%) (Auto) 1 % (0-3) Basophils (%) (Auto) 0 % (0-3) Neutrophils # (Auto) 13.6 x10^3uL (1.8-7.7) Lymphocytes # (Auto) 1.9 x10^3/uL (1.0-4.8) Monocytes # (Auto) 1.6 x10^3/uL (0.0-1.1) Eosinophils # (Auto) 0.2 x10^3/uL (0.0-0.7) Basophils # (Auto) 0.0 x10^3/uL (0.0-0.2) Segmented Neutrophils % 78 % (35-66) Band Neutrophils % 7 % (0-9) Lymphocytes % 12 % (24-48) Atypical Lymphocytes % (Manual) 2 % (0-0) Monocytes % 1 % (0-10) Platelet Estimate Adequate (ADEQUATE) Giant Platelets Occ Sodium Level 140 mmol/L (136-145) Potassium Level 3.8 mmol/L (3.5-5.1) Chloride Level 100 mmol/L (98-107) Carbon Dioxide Level 29 mmol/L (21-32) Anion Gap 11 (6-14) Blood Urea Nitrogen 8 mg/dL (8-26) Creatinine 1.0 mg/dL (0.7-1.3) Estimated GFR (Cockcroft-Gault) 82.3 BUN/Creatinine Ratio 8 (6-20) Glucose Level 106 mg/dL (70-99) Calcium Level 8.9 mg/dL (8.5-10.1) Total Bilirubin 1.0 mg/dL (0.2-1.0) Aspartate Amino Transf (AST/SGOT) 19 U/L (15-37) Alanine Aminotransferase (ALT/SGPT) 26 U/L (16-63) Alkaline Phosphatase 82 U/L (46-116) Total Protein 8.0 g/dL (6.4-8.2) Albumin 3.4 g/dL (3.4-5.0) Albumin/Globulin Ratio 0.7 (1.0-1.7) Lipase 54 U/L (73-393) Medications Current Medications Sodium Chloride 1,000 ml @ 1,000 mls/hr Q1H IV Last administered on 12/06/18at 09:19; Start 12/06/18 at 08:45; Stop 12/06/18 at 09:44; Status DC Fentanyl Citrate (Fentanyl 2ml Vial) 50 mcg 1X ONCE IV Last administered on 12/06/18at 09:19; Start 12/06/18 at 09:30; Stop 12/06/18 at 09:31; Status DC Ondansetron HCl (Zofran) 4 mg 1X ONCE IV Last administered on 12/06/18 09:18; Start 12/06/18 at 09:30; Stop 12/06/18 at 09:31; Status DC Iohexol (Omnipaque 300 Mg/ml) 75 ml 1X ONCE IV Last administered on 12/06/18 09:15; Start 12/06/18 at 09:15; Stop 12/06/18 at 09:16; Status DC Info (CONTRAST GIVEN -- Rx MONITORING) 1 each PRN DAILY PRN MC SEE COMMENTS; Start 12/06/18 at 09:15; Stop 12/08/18 at 09:14 Fentanyl Citrate (Fentanyl 2ml Vial) 50 mcg 1X ONCE IV Last administered on 11:11; Start 12/06/18 at 10:45; Stop 12/06/18 at 10:49; Status DC Sodium Chloride 1,000 ml @ 1,000 mls/hr 1X ONCE IV ; Start 12/06/18 at 10:45; Stop 12/06/18 at 11:44; Status DC Piperacillin Sod/ Tazobactam Sod 3.375 gm/Sodium Chloride 50 ml @ 100 mls/hr 1X ONCE IV Last administered on 12/06/18 10:59; Start 12/06/18 at 11:00; Stop 12/06/18 at 11:29; Status DC Ondansetron HCl (Zofran) 4 mg PRN Q8HRS PRN IV NAUSEA/VOMITING Last administered on 12/06/18 16:26; Start 12/06/18 at 11:00; Stop 12/07/18 at 10:59 Fentanyl Citrate (Fentanyl 2ml Vial) 50 mcg PRN Q1HR PRN IV PAIN Last administered on 12/07/18 04:30; Start 12/06/18 at 11:00; Stop 12/07/18 at 10:59 Sodium Chloride 1,000 ml @ 80 mls/hr [id number] IV Last administered on 12/06/18 11:09; Start 12/06/18 at 10:49; Stop 12/07/18 at 10:48 Metronidazole 100 ml @ 100 mls/hr 1X PREOP PRN IV protocol Last administered on 12/06/18at 18:49; Start 12/07/18 at 06:00; Stop 12/07/18 at 18:00 Fentanyl Citrate (Fentanyl 2ml Vial) 100 mcg STK-MED ONCE .ROUTE ; Start at 18:25; Stop 12/06/18 at 18:26; Status DC Rocuronium [place] (Zemuron) 50 mg STK-MED ONCE .ROUTE ; Start 12/06/18 at 18:25 ; Stop 12/06/18 at 18:26; Status DC Propofol 20 ml @ As Directed STK-MED ONCE IV ; Start 12/06/18 at 18:25; Stop 12/06 at 18:26; Status DC Lidocaine HCl (Lidocaine Pf 2% Vial) 5 ml STK-MED ONCE .ROUTE ; Start 12/06/18 at 18:25; Stop 12/06/18 at 18:26; Status DC Desflurane (Suprane) 30 ml STK-MED ONCE IH ; Start 12/06/18 at 18:25; Stop at 18:26; Status DC Dexamethasone Sodium Phosphate (Decadron) 20 mg STK-MED ONCE .ROUTE ; Start 12/06 at 18:25; Stop 12/06/18 at 18:26; Status DC Ondansetron HCl (Zofran) 4 mg STK-MED ONCE .ROUTE ; Start 12/06/18 at 18:26; Stop 12/06/18 at 18:27; Status DC Ketorolac Tromethamine (Toradol For Or Only) 30 mg STK-MED ONCE INJ ; Start 12/06 at 18:26; Stop 12/06/18 at 18:27; Status DC Bupivacaine HCl/ Epinephrine Bitart (Sensorcain-Mpf Epi 0.5%-[id number]) 30 ml STK -MED ONCE .ROUTE Last administered on 12/06/18at 18:50; Start 12/06/18 at 18:28; Stop 12/06/18 at 18:29; Status DC Neostigmine Methylsulfate (Bloxiverz) 10 mg STK-MED ONCE .ROUTE ; Start 12/06/18 at 18:59; Stop 12/06/18 at 19:00; Status DC Glycopyrrolate (Robinul) 1 mg STK-MED ONCE .ROUTE ; Start 12/06/18 at 18:59; Stop 12/06/18 at 19:00; Status DC Lidocaine HCl (Lidocaine Pf 2% Vial) 5 ml STK-MED ONCE .ROUTE ; Start 12/06/18 at 20:00; Stop 12/06/18 at 20:01; Status DC Enoxaparin Sodium (Lovenox 40mg Syringe) 40 mg Q24H SQ ; Start 12/07/18 at 09:00 Sodium Chloride (Normal Saline Flush) 3 ml QSHIFT PRN IV AFTER MEDS AND BLOOD DRAWS; Start 12/06/18 at 20:15 Potassium Chloride/Sodium Chloride 1,000 ml @ 100 mls/hr Q10H IV Last administered on 12/06/18at 21:27; Start 12/06/18 at 20:08 Oxycodone/ Acetaminophen (Percocet 5/325) 1 tab PRN Q4HRS PRN PO MILD PAIN, 1ST CHOICE; Start 12/06/18 at 20:15 Oxycodone/ Acetaminophen (Percocet 5/325) 2 tab PRN Q4HRS PRN PO MODERATE PAIN , SEVERE PAIN; Start 12/06/18 at 20:15 Hydromorphone HCl (Dilaudid) 1 mg PRN Q3HRS PRN IV MODERATE TO SEVERE PAIN Last administered on 12/07/18at 06:21; Start 12/06/18 at 20:15 Ondansetron HCl (Zofran) 4 mg PRN Q6HRS PRN IV NAUESA, 1ST CHOICE; Start at 20:15 Piperacillin Sod/ Tazobactam Sod 3.375 gm/Sodium Chloride 50 ml @ 100 mls/hr Q6HRS IV Last administered on 12/07/18at 06:20; Start 12/06/18 at 21:00 Ondansetron HCl (Zofran) 4 mg PRN Q6HRS PRN IV NAUSEA/VOMITING; Start 12/06/18 at 20:45; Stop 12/07/18 at 04:00; Status DC Fentanyl Citrate (Fentanyl 2ml Vial) 25 mcg PRN Q5MIN PRN IV MILD PAIN; Start 12/06/18 at 20:45; Stop 12/07/18 at 04:00; Status DC Fentanyl Citrate (Fentanyl 2ml Vial) 50 mcg PRN Q5MIN PRN IV MODERATE TO SEVERE PAIN Last administered on 12/06/18at 20:57; Start 12/06/18 at 20:45; Stop at 04:00; Status DC Morphine Sulfate (Morphine Sulfate) 1 mg PRN Q10MIN PRN IV SEVERE PAIN; Start 12/06/18 at 20:45; Stop 12/07/18 at 20:44 Ringer's Solution 1,000 ml @ 30 mls/hr Q24H IV Last administered on 12/06/18at 20:48; Start 12/06/18 at 20:32; Stop 12/07/18 at 08:31 Lidocaine HCl (Xylocaine-Mpf 1% 2ml Vial) 2 ml 1X PRN PRN ID IV START; Start at 20:45; Stop 12/07/18 at 04:00; Status DC Hydromorphone HCl (Dilaudid) 0.5 mg PRN Q10MIN PRN IV SEV PAIN, Second choice; Start 12/06/18 at 20:45; Stop 12/07/18 at 04:00; Status DC Prochlorperazine Edisylate (Compazine) 5 mg PACU PRN PRN IV NAUSEA, MRX1; Start 12/06/18 at 20:45; Stop 12/07/18 at 04:00; Status DC Vitals/I & O Vital Sign - Last 24 Hours 12/06/18 12/06/18 12/06/18 12/06/18 08:46 09:19 09:45 10:45 Temp 97.9 97.9 Pulse 90 80 82 Resp 18 18 18 18 B/P (MAP) 119/75 (90) 111/70 (84) 125/73 (90) Pulse Ox 97 97 97 97 O2 Delivery Room Air Room Air Room Air Room Air 12/06/18 12/06/18 12/06/18 12/06/18 11:11 11:40 12:00 12:29 Temp 98.1 98.1 Pulse 92 85 Resp 18 18 16 B/P (MAP) 118/72 (87) 105/68 (80) Pulse Ox 97 97 96 O2 Delivery Room Air Room Air Room Air 12/06/18 12/06/18 12/06/18 12/06/18 13:00 15:00 16:26 17:09 Temp 98.1 98.1 Pulse 54 92 Resp 16 20 B/P (MAP) 98/58 (71) 102/63 Pulse Ox 97 97 94 O2 Delivery Room Air Room Air Room Air Room Air 12/06/18 12/06/18 12/06/18 12/06/18 20:08 20:08 20:23 20:38 Temp 97.3 97.3 Pulse 83 90 88 Resp 20 20 20 B/P (MAP) 104/54 109/62 114/73 Pulse Ox 97 92 96 O2 Delivery Simple Mask Mask Nasal Cannula Nasal Cannula O2 Flow Rate 10 10 2 2 12/06/18 12/06/18 12/06/18 12/06/18 20:47 20:51 20:52 20:57 Pulse 92 Resp 22 20 22 B/P (MAP) 114/62 Pulse Ox 99 96 O2 Delivery Nasal Cannula Nasal Cannula Nasal Cannula Nasal Cannula O2 Flow Rate 2.0 2 2 2.0 12/06/18 12/06/18 12/06/18 12/06/18 21:00 21:00 21:15 21:26 Temp 98.4 98.4 Pulse 86 91 Resp 18 18 18 B/P (MAP) 107/65 (79) 111/71 (84) Pulse Ox 94 92 O2 Delivery Nasal Cannula Nasal Cannula Nasal Cannula Nasal Cannula O2 Flow Rate 2.0 2.0 2.0 2.0 12/06/18 12/06/18 12/06/18 12/06/18 21:30 21:30 21:45 22:15 Pulse 82 83 75 Resp 18 18 18 18 B/P (MAP) 108/68 (81) 109/70 (83) 106/69 (81) Pulse Ox 93 93 94 O2 Delivery Nasal Cannula Nasal Cannula Nasal Cannula Nasal Cannula O2 Flow Rate 2.0 2.0 2.0 2.0 12/06/18 12/06/18 12/06/18 12/07/18 22:45 23:23 23:53 02:09 Temp 97.6 97.6 Pulse 87 Resp 18 18 20 B/P (MAP) 106/69 (81) Pulse Ox 97 O2 Delivery Nasal Cannula Nasal Cannula Nasal Cannula O2 Flow Rate 2.0 2.0 2.0 2.0 12/07/18 12/07/18 12/07/186/19 02:39 03:00 04:30 05:00 Temp 97.9 97.9 Pulse 71 Resp 18 18 18 B/P (MAP) 101/66 (78) Pulse Ox 93 O2 Delivery Nasal Cannula Room Air Room Air O2 Flow Rate 2.0 2.0 12/07/18 12/07/18 12/07/18 06:21 06:51 07:00 Temp 97.8 97.8 Pulse 87 Resp 18 18 16 B/P (MAP) 112/66 (81) Pulse Ox 90 O2 Delivery Room Air Room Air Nasal Cannula O2 Flow Rate 2.0 Intake and Output 12/06/18 12/06/18 12/07/18 15:00 23:00 07:00 Intake Total 1000 ml 2125 ml 500 ml Output Total 345 ml 200 ml Balance 1000 ml 1780 ml 300 ml ARI LEVY MD Dec 07, 2018 08:18
[2018-12-07] MEDS: ENOXAPARIN 40 MG/0.4 ML SYRINGE. SQ SCH (08:34)
[2018-12-07 09:23] LABS: BASO % 0 % (0-3); EOS % 0 % (0-3); HEMATOCRIT 40.2 % (39.0-53.0); HEMOGLOBIN 13.6 g/dL (13.0-17.5); LYMPH # 0.8 x10^3/uL (1.0-4.8); LYMPH % 5 % (24-48); MEAN CORPUSCULAR HEMOGLOBIN 31 pg (25-35); MEAN CORPUSCULAR HGB CONC 34 g/dL (31-37); MEAN CORPUSCULAR VOLUME 93 fL (79-100); MONO # 1.2 x10^3/uL (0.0-1.1); MONO % 7 % (0-9); NEUT # 14.7 x10^3uL (1.8-7.7); NEUT % 88 % (31-73); PLATELET COUNT 195 x10^3/uL (140-400); RED BLOOD COUNT 4.34 x10^6/uL (4.30-5.70); RED CELL DISTRIBUTION WIDTH 13.1 % (11.5-14.5); WHITE BLOOD COUNT 16.8 x10^3/uL (4.0-11.0)
[2018-12-07 09:52] LABS: ALBUMIN 2.6 g/dL (3.4-5.0); ALBUMIN/GLOBULIN RATIO 0.6 (1.0-1.7); CALCIUM 8.3 mg/dL (8.5-10.1); GFR 82.3; POTASSIUM 3.8 mmol/L (3.5-5.1); TOTAL PROTEIN 7.1 g/dL (6.4-8.2)
[2018-12-07 11:00] VITALS: BP 109/66
--- NOTE | 2018-12-07 11:23 | PDOC ---
SURGICAL PROGRESS NOTE Subjective hungry appears comfortable Vital Signs Vital Signs Date Time Temp Pulse Resp B/P (MAP) Pulse Ox O2 Delivery O2 Flow Rate FiO2 12/07/18 10:43 90 Room Air 12/07/18 07:00 97.8 87 16 112/66 (81) 2.0 97.8 I&O Intake and Output 12/07/18 06:59 Intake Total 3625 ml Output Total 545 ml Balance 3080 ml Intake Oral 575 ml IV Total 3050 ml Output Urine Total 410 ml Drainage Total 10 ml Estimated Blood Loss 125 ml # Voids 1 PATIENT HAS A HILARIO: No General: Alert, No acute distress Abdomen: Soft, Other (mildly distended, dressing intact, dry, ROBINSON with serosanguineous output) Labs Laboratory Tests Test 12/06/18 09:10 12/06/18 09:15 12/07/18 08:30 Urine Collection Type Unknown Urine Color Tiffany Urine Clarity Clear Urine pH 6.0 Urine Specific [place] 1.020 Urine Protein Negative mg/dL (NEG-TRACE) Urine Glucose (UA) Negative mg/dL (NEG) Urine Ketones (Stick) Negative mg/dL (NEG) Urine Blood Negative (NEG) Urine Nitrite Negative (NEG) Urine Bilirubin Negative (NEG) Urine Urobilinogen Dipstick 0.2 mg/dL (0.2 mg/dL) Urine Leukocyte Esterase Negative (NEG) Urine RBC Occ /HPF (0-2) Urine WBC 1-4 /HPF (0-4) Urine Squamous Epithelial Cells Occ /LPF Urine Bacteria Few /HPF (0-FEW) Urine Mucus Marked /LPF White Blood Count 17.3 x10^3/uL (4.0-11.0) 16.8 x10^3/uL (4.0-11.0) Red Blood Count 5.00 x10^6/uL (4.30-5.70) 4.34 x10^6/uL (4.30-5.70) Hemoglobin 15.7 g/dL (13.0-17.5) 13.6 g/dL (13.0-17.5) Hematocrit 46.0 % (39.0-53.0) 40.2 % (39.0-53.0) Mean Corpuscular Volume 92 fL (79-100) 93 fL (79-100) Mean Corpuscular Hemoglobin 31 pg (25-35) 31 pg (25-35) Mean Corpuscular Hemoglobin Concent 34 g/dL (31-37) 34 g/dL (31-37) Red Cell Distribution Width 13.0 % (11.5-14.5) 13.1 % (11.5-14.5) Platelet Count 208 x10^3/uL (140-400) 195 x10^3/uL (140-400) Neutrophils (%) (Auto) 79 % (31-73) 88 % (31-73) Lymphocytes (%) (Auto) 11 % (24-48) 5 % (24-48) Monocytes (%) (Auto) 9 % (0-9) 7 % (0-9) Eosinophils (%) (Auto) 1 % (0-3) 0 % (0-3) Basophils (%) (Auto) 0 % (0-3) 0 % (0-3) Neutrophils # (Auto) 13.6 x10^3uL (1.8-7.7) 14.7 x10^3uL (1.8-7.7) Lymphocytes # (Auto) 1.9 x10^3/uL (1.0-4.8) 0.8 x10^3/uL (1.0-4.8) Monocytes # (Auto) 1.6 x10^3/uL (0.0-1.1) 1.2 x10^3/uL (0.0-1.1) Eosinophils # (Auto) 0.2 x10^3/uL (0.0-0.7) 0.0 x10^3/uL (0.0-0.7) Basophils # (Auto) 0.0 x10^3/uL (0.0-0.2) 0.0 x10^3/uL (0.0-0.2) Segmented Neutrophils % 78 % (35-66) Band Neutrophils % 7 % (0-9) Lymphocytes % 12 % (24-48) Atypical Lymphocytes % (Manual) 2 % (0-0) Monocytes % 1 % (0-10) Platelet Estimate Adequate (ADEQUATE) Giant Platelets Occ Sodium Level 140 mmol/L (136-145) 138 mmol/L (136-145) Potassium Level 3.8 mmol/L (3.5-5.1) 3.8 mmol/L (3.5-5.1) Chloride Level 100 mmol/L (98-107) 101 mmol/L (98-107) Carbon Dioxide Level 29 mmol/L (21-32) 27 mmol/L (21-32) Anion Gap 11 (6-14) 10 (6-14) Blood Urea Nitrogen 8 mg/dL (8-26) 12 mg/dL (8-26) Creatinine 1.0 mg/dL (0.7-1.3) 1.0 mg/dL (0.7-1.3) Estimated GFR (Cockcroft-Gault) 82.3 82.3 BUN/Creatinine Ratio 8 (6-20) 12 (6-20) Glucose Level 106 mg/dL (70-99) 137 mg/dL (70-99) Calcium Level 8.9 mg/dL (8.5-10.1) 8.3 mg/dL (8.5-10.1) Total Bilirubin 1.0 mg/dL (0.2-1.0) 1.0 mg/dL (0.2-1.0) Aspartate Amino Transf (AST/SGOT) 19 U/L (15-37) 13 U/L (15-37) Alanine Aminotransferase (ALT/SGPT) 26 U/L (16-63) 23 U/L (16-63) Alkaline Phosphatase 82 U/L (46-116) 79 U/L (46-116) Total Protein 8.0 g/dL (6.4-8.2) 7.1 g/dL (6.4-8.2) Albumin 3.4 g/dL (3.4-5.0) 2.6 g/dL (3.4-5.0) Albumin/Globulin Ratio 0.7 (1.0-1.7) 0.6 (1.0-1.7) Lipase 54 U/L (73-393) Laboratory Tests Test 12/07/18 08:30 White Blood Count 16.8 x10^3/uL (4.0-11.0) Red Blood Count 4.34 x10^6/uL (4.30-5.70) Hemoglobin 13.6 g/dL (13.0-17.5) Hematocrit 40.2 % (39.0-53.0) Mean Corpuscular Volume 93 fL (79-100) Mean Corpuscular Hemoglobin 31 pg (25-35) Mean Corpuscular Hemoglobin Concent 34 g/dL (31-37) Red Cell Distribution Width 13.1 % (11.5-14.5) Platelet Count 195 x10^3/uL (140-400) Neutrophils (%) (Auto) 88 % (31-73) Lymphocytes (%) (Auto) 5 % (24-48) Monocytes (%) (Auto) 7 % (0-9) Eosinophils (%) (Auto) 0 % (0-3) Basophils (%) (Auto) 0 % (0-3) Neutrophils # (Auto) 14.7 x10^3uL (1.8-7.7) Lymphocytes # (Auto) 0.8 x10^3/uL (1.0-4.8) Monocytes # (Auto) 1.2 x10^3/uL (0.0-1.1) Eosinophils # (Auto) 0.0 x10^3/uL (0.0-0.7) Basophils # (Auto) 0.0 x10^3/uL (0.0-0.2) Sodium Level 138 mmol/L (136-145) Potassium Level 3.8 mmol/L (3.5-5.1) Chloride Level 101 mmol/L (98-107) Carbon Dioxide Level 27 mmol/L (21-32) Anion Gap 10 (6-14) Blood Urea Nitrogen 12 mg/dL (8-26) Creatinine 1.0 mg/dL (0.7-1.3) Estimated GFR (Cockcroft-Gault) 82.3 BUN/Creatinine Ratio 12 (6-20) Glucose Level 137 mg/dL (70-99) Calcium Level 8.3 mg/dL (8.5-10.1) Total Bilirubin 1.0 mg/dL (0.2-1.0) Aspartate Amino Transf (AST/SGOT) 13 U/L (15-37) Alanine Aminotransferase (ALT/SGPT) 23 U/L (16-63) Alkaline Phosphatase 79 U/L (46-116) Total Protein 7.1 g/dL (6.4-8.2) Albumin 2.6 g/dL (3.4-5.0) Albumin/Globulin Ratio 0.6 (1.0-1.7) Problem List Problems Medical Problems: (1) Acute appendicitis Status: Acute Assessment/Plan POD open appendectomy for ruptured gangrenous appendicitis start po ambulate MAYA DEE MD Dec 07, 2018 11:23
--- NOTE | 2018-12-07 13:10 | NUR ---
SW following. Discussed with RN, pt is self pay so will not be eligible for services upon discharge. Per RN, pt lives at home alone and has a significant other. Per Dr. Correa, pt possibly will be at [facility] for 5 days potentially. SW to give self pay resources. SW will continue to follow.
[2018-12-07] MEDS: ONDANSETRON PF 4 MG/2 ML VIAL. IV PRN ×2 (13:42→22:40)
[2018-12-07 15:00] VITALS: BP 112/75
[2018-12-07 19:00] VITALS: BP 108/76
[2018-12-07] MEDS: LACTOBACILLUS RHAMNOSUS GG 1 CAPSULE. PO SCH (21:00)
[2018-12-07 23:00] VITALS: BP 102/62
[2018-12-07] MEDS: KETOROLAC 15 MG/ML VIAL. IV PRN (23:28)
[2018-12-08] MEDS: PIPERACILLIN/TAZOBACTAM 3.375 GM in IV NORMAL SALINE 50ML 50 ML IV SCH ×5 (00:13→23:17)
[2018-12-08] MEDS: HYDROmorphone 2 MG/ML VIAL IV PRN ×5 (02:12→22:28)
[2018-12-08 03:00] VITALS: BP 127/80
[2018-12-08] MEDS: POTASSIUM CL 20MEQ-0.45% NACL 1,000 ML IV SCH ×2 (03:01→13:02)
[2018-12-08] MEDS: KETOROLAC 15 MG/ML VIAL. IV PRN ×2 (05:46→10:04)
[2018-12-08 07:00] VITALS: BP 115/79
--- NOTE | 2018-12-08 07:45 | PDOC ---
PROGRESS NOTES Chief Complaint Chief Complaint A/P: Acute appendicitis - s/p open appendectomy Sepsis - likely 2/2 appendicitis with gangrene. 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 May have inherited disorder FEN - ADAT per surgery. Unknown if he is at risk of post op ileus PPX - SCDs FULL CODE Inpatient for acute appendicitis and sepsis secondary to this, likely at least 2 midnights considering his age and possibility of perforation History of Present Illness History of Present Illness Mr Mon is a 42 yo male w/ PMHx recurrent right nephrolithiasis who presents with 1 day history of diffuse abdominal pain worse periumbilical and RLQ who was found with leukocytosis 17.3 with left shift and CT abdomen/pelvis with acute appendicitis. General surgery called by ED and went for lap appy, converted to open 12/06/18 when it was noted to be gangrenous and adherent. 12/07: Pain not much better today. He has appetite, however remains NPO. He wants to get back to work. Has been compliant with abdominal binder when up. Glucose was 137 while NPO this morning. Ambulating a lot, passing flatus, with more pain today. No BM. Abdomen is more distended. No SOB or cough. Plan: Check A1c, may need sliding scale KUB today, I am concerned for ileus Zosyn 3 days, can convert to augmentin on d/c ADAT per surgery, will need to avoid feeding too early for risk of ileus. I will defer to the experts on this. Vitals Vitals Vital Signs Date Time Temp Pulse Resp B/P (MAP) Pulse Ox O2 Delivery O2 Flow Rate FiO2 12/08/18 03:00 97.6 80 18 127/80 (96) 90 Nasal Cannula 2.0 97.6 Physical Exam General: Alert, No acute distress Heart: Regular rate Lungs: Clear Abdomen: Soft, Other (mildly distended, dressing intact, dry, ROBINSON with serosanguineous output) Extremities: No clubbing, No cyanosis, No edema, Normal pulses, No tenderness/ swelling Skin: Other (warm, dry) Labs LABS Laboratory Tests Test 12/07/18 08:30 White Blood Count 16.8 x10^3/uL (4.0-11.0) Red Blood Count 4.34 x10^6/uL (4.30-5.70) Hemoglobin 13.6 g/dL (13.0-17.5) Hematocrit 40.2 % (39.0-53.0) Mean Corpuscular Volume 93 fL (79-100) Mean Corpuscular Hemoglobin 31 pg (25-35) Mean Corpuscular Hemoglobin Concent 34 g/dL (31-37) Red Cell Distribution Width 13.1 % (11.5-14.5) Platelet Count 195 x10^3/uL (140-400) Neutrophils (%) (Auto) 88 % (31-73) Lymphocytes (%) (Auto) 5 % (24-48) Monocytes (%) (Auto) 7 % (0-9) Eosinophils (%) (Auto) 0 % (0-3) Basophils (%) (Auto) 0 % (0-3) Neutrophils # (Auto) 14.7 x10^3uL (1.8-7.7) Lymphocytes # (Auto) 0.8 x10^3/uL (1.0-4.8) Monocytes # (Auto) 1.2 x10^3/uL (0.0-1.1) Eosinophils # (Auto) 0.0 x10^3/uL (0.0-0.7) Basophils # (Auto) 0.0 x10^3/uL (0.0-0.2) Sodium Level 138 mmol/L (136-145) Potassium Level 3.8 mmol/L (3.5-5.1) Chloride Level 101 mmol/L (98-107) Carbon Dioxide Level 27 mmol/L (21-32) Anion Gap 10 (6-14) Blood Urea Nitrogen 12 mg/dL (8-26) Creatinine 1.0 mg/dL (0.7-1.3) Estimated GFR (Cockcroft-Gault) 82.3 BUN/Creatinine Ratio 12 (6-20) Glucose Level 137 mg/dL (70-99) Calcium Level 8.3 mg/dL (8.5-10.1) Total Bilirubin 1.0 mg/dL (0.2-1.0) Aspartate Amino Transf (AST/SGOT) 13 U/L (15-37) Alanine Aminotransferase (ALT/SGPT) 23 U/L (16-63) Alkaline Phosphatase 79 U/L (46-116) Total Protein 7.1 g/dL (6.4-8.2) Albumin 2.6 g/dL (3.4-5.0) Albumin/Globulin Ratio 0.6 (1.0-1.7) Assessment and Plan Assessmemt and Plan Problems Medical Problems: (1) Acute appendicitis Status: Acute Comment Review of Relevant I have reviewed the following items giovana (where applicable) has been applied. Labs Laboratory Tests Test 12/06/18 09:10 12/06/18 09:15 12/07/18 08:30 Urine Collection Type Unknown Urine Color Tiffany Urine Clarity Clear Urine pH 6.0 Urine Specific [place] 1.020 Urine Protein Negative mg/dL (NEG-TRACE) Urine Glucose (UA) Negative mg/dL (NEG) Urine Ketones (Stick) Negative mg/dL (NEG) Urine Blood Negative (NEG) Urine Nitrite Negative (NEG) Urine Bilirubin Negative (NEG) Urine Urobilinogen Dipstick 0.2 mg/dL (0.2 mg/dL) Urine Leukocyte Esterase Negative (NEG) Urine RBC Occ /HPF (0-2) Urine WBC 1-4 /HPF (0-4) Urine Squamous Epithelial Cells Occ /LPF Urine Bacteria Few /HPF (0-FEW) Urine Mucus Marked /LPF White Blood Count 17.3 x10^3/uL (4.0-11.0) 16.8 x10^3/uL (4.0-11.0) Red Blood Count 5.00 x10^6/uL (4.30-5.70) 4.34 x10^6/uL (4.30-5.70) Hemoglobin 15.7 g/dL (13.0-17.5) 13.6 g/dL (13.0-17.5) Hematocrit 46.0 % (39.0-53.0) 40.2 % (39.0-53.0) Mean Corpuscular Volume 92 fL (79-100) 93 fL (79-100) Mean Corpuscular Hemoglobin 31 pg (25-35) 31 pg (25-35) Mean Corpuscular Hemoglobin Concent 34 g/dL (31-37) 34 g/dL (31-37) Red Cell Distribution Width 13.0 % (11.5-14.5) 13.1 % (11.5-14.5) Platelet Count 208 x10^3/uL (140-400) 195 x10^3/uL (140-400) Neutrophils (%) (Auto) 79 % (31-73) 88 % (31-73) Lymphocytes (%) (Auto) 11 % (24-48) 5 % (24-48) Monocytes (%) (Auto) 9 % (0-9) 7 % (0-9) Eosinophils (%) (Auto) 1 % (0-3) 0 % (0-3) Basophils (%) (Auto) 0 % (0-3) 0 % (0-3) Neutrophils # (Auto) 13.6 x10^3uL (1.8-7.7) 14.7 x10^3uL (1.8-7.7) Lymphocytes # (Auto) 1.9 x10^3/uL (1.0-4.8) 0.8 x10^3/uL (1.0-4.8) Monocytes # (Auto) 1.6 x10^3/uL (0.0-1.1) 1.2 x10^3/uL (0.0-1.1) Eosinophils # (Auto) 0.2 x10^3/uL (0.0-0.7) 0.0 x10^3/uL (0.0-0.7) Basophils # (Auto) 0.0 x10^3/uL (0.0-0.2) 0.0 x10^3/uL (0.0-0.2) Segmented Neutrophils % 78 % (35-66) Band Neutrophils % 7 % (0-9) Lymphocytes % 12 % (24-48) Atypical Lymphocytes % (Manual) 2 % (0-0) Monocytes % 1 % (0-10) Platelet Estimate Adequate (ADEQUATE) Giant Platelets Occ Sodium Level 140 mmol/L (136-145) 138 mmol/L (136-145) Potassium Level 3.8 mmol/L (3.5-5.1) 3.8 mmol/L (3.5-5.1) Chloride Level 100 mmol/L (98-107) 101 mmol/L (98-107) Carbon Dioxide Level 29 mmol/L (21-32) 27 mmol/L (21-32) Anion Gap 11 (6-14) 10 (6-14) Blood Urea Nitrogen 8 mg/dL (8-26) 12 mg/dL (8-26) Creatinine 1.0 mg/dL (0.7-1.3) 1.0 mg/dL (0.7-1.3) Estimated GFR (Cockcroft-Gault) 82.3 82.3 BUN/Creatinine Ratio 8 (6-20) 12 (6-20) Glucose Level 106 mg/dL (70-99) 137 mg/dL (70-99) Calcium Level 8.9 mg/dL (8.5-10.1) 8.3 mg/dL (8.5-10.1) Total Bilirubin 1.0 mg/dL (0.2-1.0) 1.0 mg/dL (0.2-1.0) Aspartate Amino Transf (AST/SGOT) 19 U/L (15-37) 13 U/L (15-37) Alanine Aminotransferase (ALT/SGPT) 26 U/L (16-63) 23 U/L (16-63) Alkaline Phosphatase 82 U/L (46-116) 79 U/L (46-116) Total Protein 8.0 g/dL (6.4-8.2) 7.1 g/dL (6.4-8.2) Albumin 3.4 g/dL (3.4-5.0) 2.6 g/dL (3.4-5.0) Albumin/Globulin Ratio 0.7 (1.0-1.7) 0.6 (1.0-1.7) Lipase 54 U/L (73-393) Laboratory Tests Test 12/07/18 08:30 White Blood Count 16.8 x10^3/uL (4.0-11.0) Red Blood Count 4.34 x10^6/uL (4.30-5.70) Hemoglobin 13.6 g/dL (13.0-17.5) Hematocrit 40.2 % (39.0-53.0) Mean Corpuscular Volume 93 fL (79-100) Mean Corpuscular Hemoglobin 31 pg (25-35) Mean Corpuscular Hemoglobin Concent 34 g/dL (31-37) Red Cell Distribution Width 13.1 % (11.5-14.5) Platelet Count 195 x10^3/uL (140-400) Neutrophils (%) (Auto) 88 % (31-73) Lymphocytes (%) (Auto) 5 % (24-48) Monocytes (%) (Auto) 7 % (0-9) Eosinophils (%) (Auto) 0 % (0-3) Basophils (%) (Auto) 0 % (0-3) Neutrophils # (Auto) 14.7 x10^3uL (1.8-7.7) Lymphocytes # (Auto) 0.8 x10^3/uL (1.0-4.8) Monocytes # (Auto) 1.2 x10^3/uL (0.0-1.1) Eosinophils # (Auto) 0.0 x10^3/uL (0.0-0.7) Basophils # (Auto) 0.0 x10^3/uL (0.0-0.2) Sodium Level 138 mmol/L (136-145) Potassium Level 3.8 mmol/L (3.5-5.1) Chloride Level 101 mmol/L (98-107) Carbon Dioxide Level 27 mmol/L (21-32) Anion Gap 10 (6-14) Blood Urea Nitrogen 12 mg/dL (8-26) Creatinine 1.0 mg/dL (0.7-1.3) Estimated GFR (Cockcroft-Gault) 82.3 BUN/Creatinine Ratio 12 (6-20) Glucose Level 137 mg/dL (70-99) Calcium Level 8.3 mg/dL (8.5-10.1) Total Bilirubin 1.0 mg/dL (0.2-1.0) Aspartate Amino Transf (AST/SGOT) 13 U/L (15-37) Alanine Aminotransferase (ALT/SGPT) 23 U/L (16-63) Alkaline Phosphatase 79 U/L (46-116) Total Protein 7.1 g/dL (6.4-8.2) Albumin 2.6 g/dL (3.4-5.0) Albumin/Globulin Ratio 0.6 (1.0-1.7) Microbiology 12/06/18 Anaerobic/Aerobic Culture, Resulted Pending 12/06/18 Anaerobic Culture Result 1 (SHARLENE), Resulted Pending 12/06/18 Aerobic Culture, Resulted Pending 12/06/18 Aerobic Culture Result 1 (SHARLENE), Resulted Pending 12/06/18 Gram Stain - Final, Resulted 12/06/18 Gram Stain Result 1 (SHARLENE) - Final, Resulted 12/06/18 Gram Stain Result 2 (SHARLENE) - Final, Resulted Medications Current Medications Sodium Chloride 1,000 ml @ 1,000 mls/hr Q1H IV Last administered on 12/06/18 09:19; Start 12/06/18 at 08:45; Stop 12/06/18 at 09:44; Status DC Fentanyl Citrate (Fentanyl 2ml Vial) 50 mcg 1X ONCE IV Last administered on 12/06/18at 09:19; Start 12/06/18 at 09:30; Stop 12/06/18 at 09:31; Status DC Ondansetron HCl (Zofran) 4 mg 1X ONCE IV Last administered on 12/06/18at 09:18; Start 12/06/18 at 09:30; Stop 12/06/18 at 09:31; Status DC Iohexol (Omnipaque 300 Mg/ml) 75 ml 1X ONCE IV Last administered on 12/06/18at 09:15; Start 12/06/18 at 09:15; Stop 12/06/18 at 09:16; Status DC Info (CONTRAST GIVEN -- Rx MONITORING) 1 each PRN DAILY PRN MC SEE COMMENTS; Start 12/06/18 at 09:15; Stop 12/08/18 at 09:14 Fentanyl Citrate (Fentanyl 2ml Vial) 50 mcg 1X ONCE IV Last administered on 12/06/18at 11:11; Start 12/06/18 at 10:45; Stop 12/06/18 at 10:49; Status DC Sodium Chloride 1,000 ml @ 1,000 mls/hr 1X ONCE IV ; Start 12/06/18 at 10:45; Stop 12/06/18 at 11:44; Status DC Piperacillin Sod/ Tazobactam Sod 3.375 gm/Sodium Chloride 50 ml @ 100 mls/hr 1X ONCE IV Last administered on 12/06/18at 10:59; Start 12/06/18 at 11:00; Stop 12/06/18 at 11:29; Status DC Ondansetron HCl (Zofran) 4 mg PRN Q8HRS PRN IV NAUSEA/VOMITING Last administered on 12/06/18at 16:26; Start 12/06/18 at 11:00; Stop 12/07/18 at 10:59; Status DC Fentanyl Citrate (Fentanyl 2ml Vial) 50 mcg PRN Q1HR PRN IV PAIN Last administered on 12/07/18at 10:43; Start 12/06/18 at 11:00; Stop 12/07/18 at 10:59; Status DC Sodium Chloride 1,000 ml @ 80 mls/hr [id number] IV Last administered on 12/06/18at 11:09; Start 12/06/18 at 10:49; Stop 12/07/18 at 10:48; Status DC Metronidazole 100 ml @ 100 mls/hr 1X PREOP PRN IV protocol Last administered on 12/06/18at 18:49; Start 12/07/18 at 06:00; Stop 12/07/18 at 18:00; Status DC Fentanyl Citrate (Fentanyl 2ml Vial) 100 mcg STK-MED ONCE .ROUTE ; Start at 18:25; Stop 12/06/18 at 18:26; Status DC Rocuronium [place] (Zemuron) 50 mg STK-MED ONCE .ROUTE ; Start 12/06/18 at 18:25 ; Stop 12/06/18 at 18:26; Status DC Propofol 20 ml @ As Directed STK-MED ONCE IV ; Start 12/06/18 at 18:25; Stop 12/06 at 18:26; Status DC Lidocaine HCl (Lidocaine Pf 2% Vial) 5 ml STK-MED ONCE .ROUTE ; Start 12/06/18 at 18:25; Stop 12/06/18 at 18:26; Status DC Desflurane (Suprane) 30 ml STK-MED ONCE IH ; Start 12/06/18 at 18:25; Stop at 18:26; Status DC Dexamethasone Sodium Phosphate (Decadron) 20 mg STK-MED ONCE .ROUTE ; Start 12/06 at 18:25; Stop 12/06/18 at 18:26; Status DC Ondansetron HCl (Zofran) 4 mg STK-MED ONCE .ROUTE ; Start 12/06/18 at 18:26; Stop 12/06/18 at 18:27; Status DC Ketorolac Tromethamine (Toradol For Or Only) 30 mg STK-MED ONCE INJ ; Start 12/06 at 18:26; Stop 12/06/18 at 18:27; Status DC Bupivacaine HCl/ Epinephrine Bitart (Sensorcain-Mpf Epi 0.5%-1:[id number]) 30 ml STK -MED ONCE .ROUTE Last administered on 12/06/18at 18:50; Start 12/06/18 at 18:28; Stop 12/06/18 at 18:29; Status DC Neostigmine Methylsulfate (Bloxiverz) 10 mg STK-MED ONCE .ROUTE ; Start 12/06/18 at 18:59; Stop 12/06/18 at 19:00; Status DC Glycopyrrolate (Robinul) 1 mg STK-MED ONCE .ROUTE ; Start 12/06/18 at 18:59; Stop 12/06/18 at 19:00; Status DC Lidocaine HCl (Lidocaine Pf 2% Vial) 5 ml STK-MED ONCE .ROUTE ; Start 12/06/18 at 20:00; Stop 12/06/18 at 20:01; Status DC Enoxaparin Sodium (Lovenox 40mg Syringe) 40 mg Q24H SQ Last administered on 12/07at 08:34; Start 12/07/18 at 09:00 Sodium Chloride (Normal Saline Flush) 3 ml QSHIFT PRN IV AFTER MEDS AND BLOOD DRAWS; Start 12/06/18 at 20:15 Potassium Chloride/Sodium Chloride 1,000 ml @ 100 mls/hr Q10H IV Last administered on 12/08/18at 03:01; Start 12/06/18 at 20:08 Oxycodone/ Acetaminophen (Percocet 5/325) 1 tab PRN Q4HRS PRN PO MILD PAIN, 1ST CHOICE; Start 12/06/18 at 20:15 Oxycodone/ Acetaminophen (Percocet 5/325) 2 tab PRN Q4HRS PRN PO MODERATE PAIN , SEVERE PAIN; Start 12/06/18 at 20:15 Hydromorphone HCl (Dilaudid) 1 mg PRN Q3HRS PRN IV MODERATE TO SEVERE PAIN Last administered on 12/07/18at 22:38; Start 12/06/18 at 20:15 Ondansetron HCl (Zofran) 4 mg PRN Q6HRS PRN IV NAUESA, 1ST CHOICE Last administered on 12/07/18at 22:40; Start 12/06/18 at 20:15 Piperacillin Sod/ Tazobactam Sod 3.375 gm/Sodium Chloride 50 ml @ 100 mls/hr Q6HRS IV Last administered on 12/08/18at 05:48; Start 12/06/18 at 21:00 Ondansetron HCl (Zofran) 4 mg PRN Q6HRS PRN IV NAUSEA/VOMITING; Start 12/06/18 at 20:45; Stop 12/07/18 at 04:00; Status DC Fentanyl Citrate (Fentanyl 2ml Vial) 25 mcg PRN Q5MIN PRN IV MILD PAIN; Start 12/06/18 at 20:45; Stop 12/07/18 at 04:00; Status DC Fentanyl Citrate (Fentanyl 2ml Vial) 50 mcg PRN Q5MIN PRN IV MODERATE TO SEVERE PAIN Last administered on 12/06/18at 20:57; Start 12/06/18 at 20:45; Stop at 04:00; Status DC Morphine Sulfate (Morphine Sulfate) 1 mg PRN Q10MIN PRN IV SEVERE PAIN; Start 12/06/18 at 20:45; Stop 12/07/18 at 20:44; Status DC Ringer's Solution 1,000 ml @ 30 mls/hr Q24H IV Last administered on 12/06/18at 20:48; Start 12/06/18 at 20:32; Stop 12/07/18 at 08:31; Status DC Lidocaine HCl (Xylocaine-Mpf 1% 2ml Vial) 2 ml 1X PRN PRN ID IV START; Start at 20:45; Stop 12/07/18 at 04:00; Status DC Hydromorphone HCl (Dilaudid) 0.5 mg PRN Q10MIN PRN IV SEV PAIN, Second choice; Start 12/06/18 at 20:45; Stop 12/07/18 at 04:00; Status DC Prochlorperazine Edisylate (Compazine) 5 mg PACU PRN PRN IV NAUSEA, MRX1; Start 12/06/18 at 20:45; Stop 12/07/18 at 04:00; Status DC Lactobacillus Rhamnosus (Culturelle) 1 cap BID PO ; Start 12/07/18 at 21:00 Ketorolac Tromethamine (Toradol 15mg Vial) 15 mg PRN Q6HRS PRN IV PAIN Last administered on 12/08/18at 05:46; Start 12/07/18 at 23:15; Stop 12/12/18 at 23:14 Hydromorphone HCl (Dilaudid) 2 mg PRN Q3HRS PRN IV PAIN Last administered on 12/08/18at 02:12; Start 12/07/18 at 23:15 Vitals/I & O Vital Sign - Last 24 Hours 12/07/18 12/07/18 12/07/18 12/07/18 08:10 08:34 09:14 10:43 Pulse Ox 90 O2 Delivery Room Air Room Air Room Air Room Air 12/07/18 12/07/18 12/07/18 12/07/18 11:00 13:42 15:00 16:42 Temp 97.6 97.8 97.6 97.8 Pulse 86 62 Resp 18 16 B/P (MAP) 109/66 (80) 112/75 (87) Pulse Ox 92 95 95 O2 Delivery Nasal Cannula Room Air Nasal Cannula Room Air O2 Flow Rate 2.0 2.0 12/07/18 12/07/18 12/07/18 12/07/18 19:00 19:39 20:00 22:38 Temp 97.6 97.6 Pulse 84 Resp 18 18 20 B/P (MAP) 108/76 (87) Pulse Ox 93 O2 Delivery Nasal Cannula Room Air Room Air Room Air O2 Flow Rate 2.0 12/07/18 12/07/18 12/08/18 12/08/18 23:00 23:10 02:12 02:42 Temp 97.5 97.5 Pulse 81 Resp 18 20 18 18 B/P (MAP) 102/62 (75) Pulse Ox 92 O2 Delivery Nasal Cannula Room Air Room Air Room Air O2 Flow Rate 2.0 12/08/18 03:00 Temp 97.6 97.6 Pulse 80 Resp 18 B/P (MAP) 127/80 (96) Pulse Ox 90 O2 Delivery Nasal Cannula O2 Flow Rate 2.0 Intake and Output 12/07/18 12/07/18 12/08/18 14:59 22:59 06:59 Output Total 370 ml 40 ml Balance -370 ml -40 ml ARI LEVY MD 7, 2019 07:45
[2018-12-08] MEDS: LACTOBACILLUS RHAMNOSUS GG 1 CAPSULE. PO SCH ×2 (08:32→21:32)
[2018-12-08] MEDS: ENOXAPARIN 40 MG/0.4 ML SYRINGE. SQ SCH (08:33)
--- NOTE | 2018-12-08 08:47 | PDOC ---
SURGICAL PROGRESS NOTE Subjective tolerating diet would like more to eat no n/v some incisional pain, but better Vital Signs Vital Signs Date Time Temp Pulse Resp B/P (MAP) Pulse Ox O2 Delivery O2 Flow Rate FiO2 12/08/18 07:00 98.1 87 18 115/79 (91) 95 Room Air 98.1 12/08/18 03:00 2.0 I&O Intake and Output 12/08/18 07:00 Output Total 410 ml Balance -410 ml Output Urine Total 350 ml Drainage Total 60 ml # Voids 3 General: Alert, Oriented X3, Cooperative, No acute distress Abdomen: Soft, Other (mild distention, anuj in place, lynda serosang ) Labs Laboratory Tests Test 12/06/18 09:10 12/06/18 09:15 12/07/18 08:30 Urine Collection Type Unknown Urine Color Tiffany Urine Clarity Clear Urine pH 6.0 Urine Specific [place] 1.020 Urine Protein Negative mg/dL (NEG-TRACE) Urine Glucose (UA) Negative mg/dL (NEG) Urine Ketones (Stick) Negative mg/dL (NEG) Urine Blood Negative (NEG) Urine Nitrite Negative (NEG) Urine Bilirubin Negative (NEG) Urine Urobilinogen Dipstick 0.2 mg/dL (0.2 mg/dL) Urine Leukocyte Esterase Negative (NEG) Urine RBC Occ /HPF (0-2) Urine WBC 1-4 /HPF (0-4) Urine Squamous Epithelial Cells Occ /LPF Urine Bacteria Few /HPF (0-FEW) Urine Mucus Marked /LPF White Blood Count 17.3 x10^3/uL (4.0-11.0) 16.8 x10^3/uL (4.0-11.0) Red Blood Count 5.00 x10^6/uL (4.30-5.70) 4.34 x10^6/uL (4.30-5.70) Hemoglobin 15.7 g/dL (13.0-17.5) 13.6 g/dL (13.0-17.5) Hematocrit 46.0 % (39.0-53.0) 40.2 % (39.0-53.0) Mean Corpuscular Volume 92 fL (79-100) 93 fL (79-100) Mean Corpuscular Hemoglobin 31 pg (25-35) 31 pg (25-35) Mean Corpuscular Hemoglobin Concent 34 g/dL (31-37) 34 g/dL (31-37) Red Cell Distribution Width 13.0 % (11.5-14.5) 13.1 % (11.5-14.5) Platelet Count 208 x10^3/uL (140-400) 195 x10^3/uL (140-400) Neutrophils (%) (Auto) 79 % (31-73) 88 % (31-73) Lymphocytes (%) (Auto) 11 % (24-48) 5 % (24-48) Monocytes (%) (Auto) 9 % (0-9) 7 % (0-9) Eosinophils (%) (Auto) 1 % (0-3) 0 % (0-3) Basophils (%) (Auto) 0 % (0-3) 0 % (0-3) Neutrophils # (Auto) 13.6 x10^3uL (1.8-7.7) 14.7 x10^3uL (1.8-7.7) Lymphocytes # (Auto) 1.9 x10^3/uL (1.0-4.8) 0.8 x10^3/uL (1.0-4.8) Monocytes # (Auto) 1.6 x10^3/uL (0.0-1.1) 1.2 x10^3/uL (0.0-1.1) Eosinophils # (Auto) 0.2 x10^3/uL (0.0-0.7) 0.0 x10^3/uL (0.0-0.7) Basophils # (Auto) 0.0 x10^3/uL (0.0-0.2) 0.0 x10^3/uL (0.0-0.2) Segmented Neutrophils % 78 % (35-66) Band Neutrophils % 7 % (0-9) Lymphocytes % 12 % (24-48) Atypical Lymphocytes % (Manual) 2 % (0-0) Monocytes % 1 % (0-10) Platelet Estimate Adequate (ADEQUATE) Giant Platelets Occ Sodium Level 140 mmol/L (136-145) 138 mmol/L (136-145) Potassium Level 3.8 mmol/L (3.5-5.1) 3.8 mmol/L (3.5-5.1) Chloride Level 100 mmol/L (98-107) 101 mmol/L (98-107) Carbon Dioxide Level 29 mmol/L (21-32) 27 mmol/L (21-32) Anion Gap 11 (6-14) 10 (6-14) Blood Urea Nitrogen 8 mg/dL (8-26) 12 mg/dL (8-26) Creatinine 1.0 mg/dL (0.7-1.3) 1.0 mg/dL (0.7-1.3) Estimated GFR (Cockcroft-Gault) 82.3 82.3 BUN/Creatinine Ratio 8 (6-20) 12 (6-20) Glucose Level 106 mg/dL (70-99) 137 mg/dL (70-99) Calcium Level 8.9 mg/dL (8.5-10.1) 8.3 mg/dL (8.5-10.1) Total Bilirubin 1.0 mg/dL (0.2-1.0) 1.0 mg/dL (0.2-1.0) Aspartate Amino Transf (AST/SGOT) 19 U/L (15-37) 13 U/L (15-37) Alanine Aminotransferase (ALT/SGPT) 26 U/L (16-63) 23 U/L (16-63) Alkaline Phosphatase 82 U/L (46-116) 79 U/L (46-116) Total Protein 8.0 g/dL (6.4-8.2) 7.1 g/dL (6.4-8.2) Albumin 3.4 g/dL (3.4-5.0) 2.6 g/dL (3.4-5.0) Albumin/Globulin Ratio 0.7 (1.0-1.7) 0.6 (1.0-1.7) Lipase 54 U/L (73-393) Problem List Problems Medical Problems: (1) Acute appendicitis Status: Acute Assessment/Plan POD#2 open appy, ruptured wound care, ambulate, continues liquids, await improved bowel function 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
[2018-12-08] MEDS: oxyCODONE/APAP 5/325 1 TAB TABLET PO PRN ×2 (09:03→21:32)
[2018-12-08 09:52] LABS: BASO % 0 % (0-3); EOS # 0.2 x10^3/uL (0.0-0.7); EOS % 2 % (0-3); HEMATOCRIT 39.2 % (39.0-53.0); LYMPH # 1.3 x10^3/uL (1.0-4.8); LYMPH % 11 % (24-48); MEAN CORPUSCULAR HEMOGLOBIN 31 pg (25-35); MEAN CORPUSCULAR HGB CONC 33 g/dL (31-37); MEAN CORPUSCULAR VOLUME 93 fL (79-100); MONO % 8 % (0-9); NEUT % 78 % (31-73); PLATELET COUNT 232 x10^3/uL (140-400); RED BLOOD COUNT 4.22 x10^6/uL (4.30-5.70); RED CELL DISTRIBUTION WIDTH 13.2 % (11.5-14.5); WHITE BLOOD COUNT 11.6 x10^3/uL (4.0-11.0)
[2018-12-08 09:58] LABS: CALCIUM 8.6 mg/dL (8.5-10.1); CREATININE 1.1 mg/dL (0.7-1.3); GFR 73.8; POTASSIUM 3.8 mmol/L (3.5-5.1)
[2018-12-08 11:00] VITALS: BP 110/79
[2018-12-08] MEDS: POLYETHYLENE GLYCOL 3350 17 GM PACKET. PO SCH ×2 (12:57→21:33)
[2018-12-08] MEDS: SENNOSIDES/DOCUSATE 8.6/50MG TABLET. PO PRN (12:57)
[2018-12-08 15:00] VITALS: BP 125/89
--- NOTE | 2018-12-08 15:14 | NUR ---
SW following. Discussed with RN. awaiting culture results. SW will continue to follow.
--- NOTE | 2018-12-08 15:52 | RAD ---
Portable abdomen, 12/08/2018: HISTORY: Postop abdominal distention There are surgical skin clips overlying the lower abdomen and pelvis. A tube overlying the right side of the abdomen and pelvis is presumably a surgical drain. There is mild gaseous distention of predominantly small bowel loops. Colonic gas is evident. There are mild scattered degenerative changes in the spine. IMPRESSION: Mild gaseous distention of small bowel suggesting a postoperative ileus. Partial small bowel obstruction cannot be excluded. Electronically signed by: Faustino Ryan MD (12/08/2018 3:49 PM) [facility]
--- NOTE | 2018-12-08 18:06 | PATHOLOGY ---
[facility] Accession Number: [id number] . 01 Material submitted: . APPENDIX . 01 Clinical history: . Perforated appendicitis . 02 Diagnosis: Appendix, open appendectomy: - Fecalith. - Acute necrotizing (gangrenous) appendicitis with focal perforation and serosal acute inflammatory exudate. (JPM:director of technology; 12/08/2018) MBR/12/08/2018 . 02 Comment: There is no evidence of malignancy. (JPM:director of technology; 12/08/2018) . 02 Electronically signed: . Michael Nichole MD, Pathologist NPI- [id number] . 01 Gross description: . The specimen is received in formalin, labeled "Montielperez, Omar, appendix" and consists of a markedly enlarged appendix measuring 9.8 cm in length and ranging from 0.8-1.4 cm in diameter with mesoappendix lining the entire specimen measuring up to 2.6 cm thick. The margin is closed with a line of sabi and inked blue. A perforation is noted 3.2 cm from the tip. The serosa is donovan-brown with necrosis/abscess formation over 75% of the specimen. Sectioning reveals a dilated and abscessed lumen containing brown fecal material and a single fecalith. Nickel Plater sections are submitted in A1-A4. (SDY; 12/07/2018) SYU/SYU . 02 Pathologist provided ICD-10: K35.80 . 02 CPT . 915356 Specimen Comment: A courtesy copy of this report has been sent to Specimen Comment: [phone], , . Specimen Comment: Report sent to ,DR LEVY / DR BUNDY Specimen Comment: A duplicate report has been generated due to demographic updates. Performed at: 01 [facility] [address] [facility] [address], [place] [id number] MD Blake Graves MD Phone: [phone] Performed at: 02 [facility] [address] [place], [place] [id number] MD Michael Nichole MD Phone: [phone]
[2018-12-08] MEDS: ONDANSETRON PF 4 MG/2 ML VIAL. IV PRN (18:37)
[2018-12-08 19:00] VITALS: BP 116/84
[2018-12-08 23:00] VITALS: BP 128/86
[2018-12-08 23:15] LABS: HEMOGLOBIN A1C 5.2 % (4.8-5.6)
[2018-12-09] MEDS: diphenhydrAMINE 50 MG/ML VIAL IVP PRN ×2 (00:22→23:47)
[2018-12-09 03:01] VITALS: BP 120/87
[2018-12-09] MEDS: POTASSIUM CL 20MEQ-0.45% NACL 1,000 ML IV SCH ×3 (03:01→17:27)
[2018-12-09] MEDS: oxyCODONE/APAP 5/325 1 TAB TABLET PO PRN ×5 (03:05→20:30)
[2018-12-09] MEDS: HYDROmorphone 2 MG/ML VIAL IV PRN (04:17)
[2018-12-09] MEDS: PIPERACILLIN/TAZOBACTAM 3.375 GM in IV NORMAL SALINE 50ML 50 ML IV SCH ×4 (05:38→23:49)
[2018-12-09 07:00] VITALS: BP 124/87
--- NOTE | 2018-12-09 08:03 | PDOC ---
PROGRESS NOTES Chief Complaint Chief Complaint A/P: Acute appendicitis - s/p open appendectomy Sepsis - likely 2/2 appendicitis with gangrene. 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 May have inherited disorder FEN - ADAT per surgery. Unknown if he is at risk of post op ileus PPX - SCDs FULL CODE Inpatient for acute appendicitis and sepsis secondary to this, likely at least 2 midnights considering his age and possibility of perforation History of Present Illness History of Present Illness Mr Mon is a 42 yo male w/ PMHx recurrent right nephrolithiasis who presents with 1 day history of diffuse abdominal pain worse periumbilical and RLQ who was found with leukocytosis 17.3 with left shift and CT abdomen/pelvis with acute appendicitis. General surgery called by ED and went for lap appy, converted to open 12/06/18 when it was noted to be gangrenous and adherent. 12/07: Pain not much better today. He has appetite, however remains NPO. He wants to get back to work. Has been compliant with abdominal binder when up. Glucose was 137 while NPO this morning. Ambulating a lot, passing flatus, with less pain today. No BM. Abdomen is less distended. No SOB or cough. KUB yesterday showed ileus Plan: Check A1c, may need sliding scale Zosyn 3 days, can convert to augmentin on d/c if he is taking PO better ADAT per surgery, will need to avoid feeding too early for risk of ileus. I will defer to the experts on this. Vitals Vitals Vital Signs Date Time Temp Pulse Resp B/P (MAP) Pulse Ox O2 Delivery O2 Flow Rate FiO2 12/09/18 04:47 Room Air 12/09/18 03:01 98.3 70 18 120/87 (98) 92 98.3 Physical Exam General: Alert, Oriented X3, Cooperative, No acute distress Heart: Regular rate Lungs: Clear Abdomen: Soft, Other (mild distention, anuj in place, lynda serosang ) Extremities: No clubbing, No cyanosis, No edema, Normal pulses, No tenderness/ swelling Skin: Other (warm, dry) Labs LABS Laboratory Tests Test 12/08/18 09:10 White Blood Count 11.6 x10^3/uL (4.0-11.0) Red Blood Count 4.22 x10^6/uL (4.30-5.70) Hemoglobin 13.0 g/dL (13.0-17.5) Hematocrit 39.2 % (39.0-53.0) Mean Corpuscular Volume 93 fL (79-100) Mean Corpuscular Hemoglobin 31 pg (25-35) Mean Corpuscular Hemoglobin Concent 33 g/dL (31-37) Red Cell Distribution Width 13.2 % (11.5-14.5) Platelet Count 232 x10^3/uL (140-400) Neutrophils (%) (Auto) 78 % (31-73) Lymphocytes (%) (Auto) 11 % (24-48) Monocytes (%) (Auto) 8 % (0-9) Eosinophils (%) (Auto) 2 % (0-3) Basophils (%) (Auto) 0 % (0-3) Neutrophils # (Auto) 9.0 x10^3uL (1.8-7.7) Lymphocytes # (Auto) 1.3 x10^3/uL (1.0-4.8) Monocytes # (Auto) 1.0 x10^3/uL (0.0-1.1) Eosinophils # (Auto) 0.2 x10^3/uL (0.0-0.7) Basophils # (Auto) 0.0 x10^3/uL (0.0-0.2) Sodium Level 138 mmol/L (136-145) Potassium Level 3.8 mmol/L (3.5-5.1) Chloride Level 102 mmol/L (98-107) Carbon Dioxide Level 28 mmol/L (21-32) Anion Gap 8 (6-14) Blood Urea Nitrogen 21 mg/dL (8-26) Creatinine 1.1 mg/dL (0.7-1.3) Estimated GFR (Cockcroft-Gault) 73.8 Glucose Level 111 mg/dL (70-99) Calcium Level 8.6 mg/dL (8.5-10.1) Assessment and Plan Assessmemt and Plan Problems Medical Problems: (1) Acute appendicitis Status: Acute Comment Review of Relevant I have reviewed the following items giovana (where applicable) has been applied. Labs Laboratory Tests Test 12/07/18 08:30 12/08/18 09:10 White Blood Count 16.8 x10^3/uL (4.0-11.0) 11.6 x10^3/uL (4.0-11.0) Red Blood Count 4.34 x10^6/uL (4.30-5.70) 4.22 x10^6/uL (4.30-5.70) Hemoglobin 13.6 g/dL (13.0-17.5) 13.0 g/dL (13.0-17.5) Hematocrit 40.2 % (39.0-53.0) 39.2 % (39.0-53.0) Mean Corpuscular Volume 93 fL (79-100) 93 fL (79-100) Mean Corpuscular Hemoglobin 31 pg (25-35) 31 pg (25-35) Mean Corpuscular Hemoglobin Concent 34 g/dL (31-37) 33 g/dL (31-37) Red Cell Distribution Width 13.1 % (11.5-14.5) 13.2 % (11.5-14.5) Platelet Count 195 x10^3/uL (140-400) 232 x10^3/uL (140-400) Neutrophils (%) (Auto) 88 % (31-73) 78 % (31-73) Lymphocytes (%) (Auto) 5 % (24-48) 11 % (24-48) Monocytes (%) (Auto) 7 % (0-9) 8 % (0-9) Eosinophils (%) (Auto) 0 % (0-3) 2 % (0-3) Basophils (%) (Auto) 0 % (0-3) 0 % (0-3) Neutrophils # (Auto) 14.7 x10^3uL (1.8-7.7) 9.0 x10^3uL (1.8-7.7) Lymphocytes # (Auto) 0.8 x10^3/uL (1.0-4.8) 1.3 x10^3/uL (1.0-4.8) Monocytes # (Auto) 1.2 x10^3/uL (0.0-1.1) 1.0 x10^3/uL (0.0-1.1) Eosinophils # (Auto) 0.0 x10^3/uL (0.0-0.7) 0.2 x10^3/uL (0.0-0.7) Basophils # (Auto) 0.0 x10^3/uL (0.0-0.2) 0.0 x10^3/uL (0.0-0.2) Sodium Level 138 mmol/L (136-145) 138 mmol/L (136-145) Potassium Level 3.8 mmol/L (3.5-5.1) 3.8 mmol/L (3.5-5.1) Chloride Level 101 mmol/L (98-107) 102 mmol/L (98-107) Carbon Dioxide Level 27 mmol/L (21-32) 28 mmol/L (21-32) Anion Gap 10 (6-14) 8 (6-14) Blood Urea Nitrogen 12 mg/dL (8-26) 21 mg/dL (8-26) Creatinine 1.0 mg/dL (0.7-1.3) 1.1 mg/dL (0.7-1.3) Estimated GFR (Cockcroft-Gault) 82.3 73.8 BUN/Creatinine Ratio 12 (6-20) Glucose Level 137 mg/dL (70-99) 111 mg/dL (70-99) Hemoglobin A1c 5.2 % (4.8-5.6) Calcium Level 8.3 mg/dL (8.5-10.1) 8.6 mg/dL (8.5-10.1) Total Bilirubin 1.0 mg/dL (0.2-1.0) Aspartate Amino Transf (AST/SGOT) 13 U/L (15-37) Alanine Aminotransferase (ALT/SGPT) 23 U/L (16-63) Alkaline Phosphatase 79 U/L (46-116) Total Protein 7.1 g/dL (6.4-8.2) Albumin 2.6 g/dL (3.4-5.0) Albumin/Globulin Ratio 0.6 (1.0-1.7) Laboratory Tests Test 12/08/18 09:10 White Blood Count 11.6 x10^3/uL (4.0-11.0) Red Blood Count 4.22 x10^6/uL (4.30-5.70) Hemoglobin 13.0 g/dL (13.0-17.5) Hematocrit 39.2 % (39.0-53.0) Mean Corpuscular Volume 93 fL (79-100) Mean Corpuscular Hemoglobin 31 pg (25-35) Mean Corpuscular Hemoglobin Concent 33 g/dL (31-37) Red Cell Distribution Width 13.2 % (11.5-14.5) Platelet Count 232 x10^3/uL (140-400) Neutrophils (%) (Auto) 78 % (31-73) Lymphocytes (%) (Auto) 11 % (24-48) Monocytes (%) (Auto) 8 % (0-9) Eosinophils (%) (Auto) 2 % (0-3) Basophils (%) (Auto) 0 % (0-3) Neutrophils # (Auto) 9.0 x10^3uL (1.8-7.7) Lymphocytes # (Auto) 1.3 x10^3/uL (1.0-4.8) Monocytes # (Auto) 1.0 x10^3/uL (0.0-1.1) Eosinophils # (Auto) 0.2 x10^3/uL (0.0-0.7) Basophils # (Auto) 0.0 x10^3/uL (0.0-0.2) Sodium Level 138 mmol/L (136-145) Potassium Level 3.8 mmol/L (3.5-5.1) Chloride Level 102 mmol/L (98-107) Carbon Dioxide Level 28 mmol/L (21-32) Anion Gap 8 (6-14) Blood Urea Nitrogen 21 mg/dL (8-26) Creatinine 1.1 mg/dL (0.7-1.3) Estimated GFR (Cockcroft-Gault) 73.8 Glucose Level 111 mg/dL (70-99) Calcium Level 8.6 mg/dL (8.5-10.1) Microbiology 12/06/18 Anaerobic/Aerobic Culture, Resulted Pending 12/06/18 Anaerobic Culture Result 1 (SHARLENE), Resulted Pending 12/06/18 Aerobic Culture, Resulted Pending 12/06/18 Aerobic Culture Result 1 (SHARLENE), Resulted Pending 12/06/18 Gram Stain - Final, Resulted 12/06/18 Gram Stain Result 1 (SHARLENE) - Final, Resulted 12/06/18 Gram Stain Result 2 (SHARLENE) - Final, Resulted Medications Current Medications Sodium Chloride 1,000 ml @ 1,000 mls/hr Q1H IV Last administered on 12/06/18at 09:19; Start 12/06/18 at 08:45; Stop 12/06/18 at 09:44; Status DC Fentanyl Citrate (Fentanyl 2ml Vial) 50 mcg 1X ONCE IV Last administered on 12/06/18at 09:19; Start 12/06/18 at 09:30; Stop 12/06/18 at 09:31; Status DC Ondansetron HCl (Zofran) 4 mg 1X ONCE IV Last administered on 12/06/18at 09:18; Start 12/06/18 at 09:30; Stop 12/06/18 at 09:31; Status DC Iohexol (Omnipaque 300 Mg/ml) 75 ml 1X ONCE IV Last administered on 12/06/18at 09:15; Start 12/06/18 at 09:15; Stop 12/06/18 at 09:16; Status DC Info (CONTRAST GIVEN -- Rx MONITORING) 1 each PRN DAILY PRN MC SEE COMMENTS; Start 12/06/18 at 09:15; Stop 12/08/18 at 09:14; Status DC Fentanyl Citrate (Fentanyl 2ml Vial) 50 mcg 1X ONCE IV Last administered on 12/06/18at 11:11; Start 12/06/18 at 10:45; Stop 12/06/18 at 10:49; Status DC Sodium Chloride 1,000 ml @ 1,000 mls/hr 1X ONCE IV ; Start 12/06/18 at 10:45; Stop 12/06/18 at 11:44; Status DC Piperacillin Sod/ Tazobactam Sod 3.375 gm/Sodium Chloride 50 ml @ 100 mls/hr 1X ONCE IV Last administered on 12/06/18at 10:59; Start 12/06/18 at 11:00; Stop 12/06/18 at 11:29; Status DC Ondansetron HCl (Zofran) 4 mg PRN Q8HRS PRN IV NAUSEA/VOMITING Last administered on 12/06/18at 16:26; Start 12/06/18 at 11:00; Stop 12/07/18 at 10:59; Status DC Fentanyl Citrate (Fentanyl 2ml Vial) 50 mcg PRN Q1HR PRN IV PAIN Last administered on 12/07/18at 10:43; Start 12/06/18 at 11:00; Stop 12/07/18 at 10:59; Status DC Sodium Chloride 1,000 ml @ 80 mls/hr [id number] IV Last administered on 12/06/18at 11:09; Start 12/06/18 at 10:49; Stop 12/07/18 at 10:48; Status DC Metronidazole 100 ml @ 100 mls/hr 1X PREOP PRN IV protocol Last administered on 12/06/18at 18:49; Start 12/07/18 at 06:00; Stop 12/07/18 at 18:00; Status DC Fentanyl Citrate (Fentanyl 2ml Vial) 100 mcg STK-MED ONCE .ROUTE ; Start at 18:25; Stop 12/06/18 at 18:26; Status DC Rocuronium [place] (Zemuron) 50 mg STK-MED ONCE .ROUTE ; Start 12/06/18 at 18:25 ; Stop 12/06/18 at 18:26; Status DC Propofol 20 ml @ As Directed STK-MED ONCE IV ; Start 12/06/18 at 18:25; Stop 12/06 at 18:26; Status DC Lidocaine HCl (Lidocaine Pf 2% Vial) 5 ml STK-MED ONCE .ROUTE ; Start 12/06/18 at 18:25; Stop 12/06/18 at 18:26; Status DC Desflurane (Suprane) 30 ml STK-MED ONCE IH ; Start 12/06/18 at 18:25; Stop at 18:26; Status DC Dexamethasone Sodium Phosphate (Decadron) 20 mg STK-MED ONCE .ROUTE ; Start 12/06 at 18:25; Stop 12/06/18 at 18:26; Status DC Ondansetron HCl (Zofran) 4 mg STK-MED ONCE .ROUTE ; Start 12/06/18 at 18:26; Stop 12/06/18 at 18:27; Status DC Ketorolac Tromethamine (Toradol For Or Only) 30 mg STK-MED ONCE INJ ; Start 12/06 at 18:26; Stop 12/06/18 at 18:27; Status DC Bupivacaine HCl/ Epinephrine Bitart (Sensorcain-Mpf Epi 0.5%-[id number]) 30 ml STK -MED ONCE .ROUTE Last administered on 12/06/18 18:50; Start 12/06/18 at 18:28; Stop 12/06/18 at 18:29; Status DC Neostigmine Methylsulfate (Bloxiverz) 10 mg STK-MED ONCE .ROUTE ; Start 12/06/18 at 18:59; Stop 12/06/18 at 19:00; Status DC Glycopyrrolate (Robinul) 1 mg STK-MED ONCE .ROUTE ; Start 12/06/18 at 18:59; Stop 12/06/18 at 19:00; Status DC Lidocaine HCl (Lidocaine Pf 2% Vial) 5 ml STK-MED ONCE .ROUTE ; Start 12/06/18 at 20:00; Stop 12/06/18 at 20:01; Status DC Enoxaparin Sodium (Lovenox 40mg Syringe) 40 mg Q24H SQ Last administered on 12/08 08:33; Start 12/07/18 at 09:00 Sodium Chloride (Normal Saline Flush) 3 ml QSHIFT PRN IV AFTER MEDS AND BLOOD DRAWS; Start 12/06/18 at 20:15 Potassium Chloride/Sodium Chloride 1,000 ml @ 100 mls/hr Q10H IV Last administered on 12/09/18 03:01; Start 12/06/18 at 20:08 Oxycodone/ Acetaminophen (Percocet 5/325) 1 tab PRN Q4HRS PRN PO MILD PAIN, 1ST CHOICE Last administered on 12/08/18 09:03; Start 12/06/18 at 20:15 Oxycodone/ Acetaminophen (Percocet 5/325) 2 tab PRN Q4HRS PRN PO MODERATE PAIN , SEVERE PAIN Last administered on 12/09/18 03:05; Start 12/06/18 at 20:15 Hydromorphone HCl (Dilaudid) 1 mg PRN Q3HRS PRN IV MODERATE PAIN Last administered on 12/07/18 22:38; Start 12/06/18 at 20:15 Ondansetron HCl (Zofran) 4 mg PRN Q6HRS PRN IV NAUESA, 1ST CHOICE Last administered on 3/7/19at 18:37; Start 12/06/18 at 20:15 Piperacillin Sod/ Tazobactam Sod 3.375 gm/Sodium Chloride 50 ml @ 100 mls/hr Q6HRS IV Last administered on 12/09/18at 05:38; Start 12/06/18 at 21:00 Ondansetron HCl (Zofran) 4 mg PRN Q6HRS PRN IV NAUSEA/VOMITING; Start 12/06/18 at 20:45; Stop 12/07/18 at 04:00; Status DC Fentanyl Citrate (Fentanyl 2ml Vial) 25 mcg PRN Q5MIN PRN IV MILD PAIN; Start 12/06/18 at 20:45; Stop 12/07/18 at 04:00; Status DC Fentanyl Citrate (Fentanyl 2ml Vial) 50 mcg PRN Q5MIN PRN IV MODERATE TO SEVERE PAIN Last administered on 12/06/18at 20:57; Start 12/06/18 at 20:45; Stop at 04:00; Status DC Morphine Sulfate (Morphine Sulfate) 1 mg PRN Q10MIN PRN IV SEVERE PAIN; Start 12/06/18 at 20:45; Stop 12/07/18 at 20:44; Status DC Ringer's Solution 1,000 ml @ 30 mls/hr Q24H IV Last administered on 12/06/18at 20:48; Start 12/06/18 at 20:32; Stop 12/07/18 at 08:31; Status DC Lidocaine HCl (Xylocaine-Mpf 1% 2ml Vial) 2 ml 1X PRN PRN ID IV START; Start at 20:45; Stop 12/07/18 at 04:00; Status DC Hydromorphone HCl (Dilaudid) 0.5 mg PRN Q10MIN PRN IV SEV PAIN, Second choice; Start 12/06/18 at 20:45; Stop 12/07/18 at 04:00; Status DC Prochlorperazine Edisylate (Compazine) 5 mg PACU PRN PRN IV NAUSEA, MRX1; Start 12/06/18 at 20:45; Stop 12/07/18 at 04:00; Status DC Lactobacillus Rhamnosus (Culturelle) 1 cap BID PO Last administered on at 21:32; Start 12/07/18 at 21:00 Ketorolac Tromethamine (Toradol 15mg Vial) 15 mg PRN Q6HRS PRN IV MILD PAIN Last administered on 12/08/18at 10:04; Start 12/07/18 at 23:15; Stop 12/12/18 at 23 :14 Hydromorphone HCl (Dilaudid) 2 mg PRN Q3HRS PRN IV PAIN Last administered on 04:17; Start 12/07/18 at 23:15 Senna/Docusate Sodium (Senna Plus) 2 tab PRN BID PRN PO CONSTIPATION Last administered on 12/08/18 12:57; Start 12/08/18 at 12:30 Polyethylene Glycol (miraLAX PACKET) 17 gm BID PO Last administered on 21:33; Start 12/08/18 at 13:00 Diphenhydramine HCl (Benadryl) 25 mg PRN QHS PRN IVP ITCHING Last administered on 12/09/18 00:22; Start 12/08/18 at 14:30 Vitals/I & O Vital Sign - Last 24 Hours 12/08/18 12/08/18 12/08/18 12/08/18 09:03 10:03 11:00 13:28 Temp 97.7 97.7 Pulse 84 Resp 16 B/P (MAP) 110/79 (89) Pulse Ox 95 O2 Delivery Room Air Room Air Room Air Room Air 12/08/18 12/08/18 12/08/18 12/08/18 15:00 18:29 19:00 20:12 Temp 98.1 97.9 98.1 97.9 Pulse 81 65 Resp 16 18 B/P (MAP) 125/89 (101) 116/84 (95) Pulse Ox 93 92 O2 Delivery Room Air Room Air Room Air Room Air 12/08/18 12/08/18 12/08/18 12/09/18 21:32 22:28 23:00 03:01 Temp 97.8 98.3 97.8 98.3 Pulse 73 70 Resp 18 18 B/P (MAP) 128/86 (100) 120/87 (98) Pulse Ox 93 92 O2 Delivery Room Air Room Air Room Air Room Air 12/09/18 12/09/18 12/09/18 12/09/18 03:05 04:05 04:17 04:47 O2 Delivery Room Air Room Air Room Air Room Air Intake and Output 12/08/18 12/08/18 12/09/18 14:59 22:59 06:59 Output Total 50 ml 30 ml Balance -50 ml -30 ml ARI LEVY MD Dec 09, 2018 08:03
[2018-12-09] MEDS: POLYETHYLENE GLYCOL 3350 17 GM PACKET. PO SCH ×2 (08:19→20:29)
[2018-12-09] MEDS: LACTOBACILLUS RHAMNOSUS GG 1 CAPSULE. PO SCH ×2 (08:19→20:29)
[2018-12-09] MEDS: ENOXAPARIN 40 MG/0.4 ML SYRINGE. SQ SCH (08:20)
--- NOTE | 2018-12-09 08:32 | PDOC ---
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 12/09/18 0832: SURGICAL PROGRESS NOTE Subjective tolerating diet feels better, pain is improving + flatus, no nausea Vital Signs Vital Signs Date Time Temp Pulse Resp B/P (MAP) Pulse Ox O2 Delivery O2 Flow Rate FiO2 12/09/18 08:20 Room Air 12/09/18 07:00 98.3 83 16 124/87 (99) 97 98.3 I&O Intake and Output 12/09/18 06:59 Output Total 80 ml Balance -80 ml Drainage Total 80 ml # Voids 4 General: Alert, Oriented X3, Cooperative, No acute distress Abdomen: Soft, Other (dressing dry, lynda serosang) Labs Laboratory Tests Test 12/08/18 09:10 White Blood Count 11.6 x10^3/uL (4.0-11.0) Red Blood Count 4.22 x10^6/uL (4.30-5.70) Hemoglobin 13.0 g/dL (13.0-17.5) Hematocrit 39.2 % (39.0-53.0) Mean Corpuscular Volume 93 fL (79-100) Mean Corpuscular Hemoglobin 31 pg (25-35) Mean Corpuscular Hemoglobin Concent 33 g/dL (31-37) Red Cell Distribution Width 13.2 % (11.5-14.5) Platelet Count 232 x10^3/uL (140-400) Neutrophils (%) (Auto) 78 % (31-73) Lymphocytes (%) (Auto) 11 % (24-48) Monocytes (%) (Auto) 8 % (0-9) Eosinophils (%) (Auto) 2 % (0-3) Basophils (%) (Auto) 0 % (0-3) Neutrophils # (Auto) 9.0 x10^3uL (1.8-7.7) Lymphocytes # (Auto) 1.3 x10^3/uL (1.0-4.8) Monocytes # (Auto) 1.0 x10^3/uL (0.0-1.1) Eosinophils # (Auto) 0.2 x10^3/uL (0.0-0.7) Basophils # (Auto) 0.0 x10^3/uL (0.0-0.2) Sodium Level 138 mmol/L (136-145) Potassium Level 3.8 mmol/L (3.5-5.1) Chloride Level 102 mmol/L (98-107) Carbon Dioxide Level 28 mmol/L (21-32) Anion Gap 8 (6-14) Blood Urea Nitrogen 21 mg/dL (8-26) Creatinine 1.1 mg/dL (0.7-1.3) Estimated GFR (Cockcroft-Gault) 73.8 Glucose Level 111 mg/dL (70-99) Calcium Level 8.6 mg/dL (8.5-10.1) Laboratory Tests Test 12/08/18 09:10 White Blood Count 11.6 x10^3/uL (4.0-11.0) Red Blood Count 4.22 x10^6/uL (4.30-5.70) Hemoglobin 13.0 g/dL (13.0-17.5) Hematocrit 39.2 % (39.0-53.0) Mean Corpuscular Volume 93 fL (79-100) Mean Corpuscular Hemoglobin 31 pg (25-35) Mean Corpuscular Hemoglobin Concent 33 g/dL (31-37) Red Cell Distribution Width 13.2 % (11.5-14.5) Platelet Count 232 x10^3/uL (140-400) Neutrophils (%) (Auto) 78 % (31-73) Lymphocytes (%) (Auto) 11 % (24-48) Monocytes (%) (Auto) 8 % (0-9) Eosinophils (%) (Auto) 2 % (0-3) Basophils (%) (Auto) 0 % (0-3) Neutrophils # (Auto) 9.0 x10^3uL (1.8-7.7) Lymphocytes # (Auto) 1.3 x10^3/uL (1.0-4.8) Monocytes # (Auto) 1.0 x10^3/uL (0.0-1.1) Eosinophils # (Auto) 0.2 x10^3/uL (0.0-0.7) Basophils # (Auto) 0.0 x10^3/uL (0.0-0.2) Sodium Level 138 mmol/L (136-145) Potassium Level 3.8 mmol/L (3.5-5.1) Chloride Level 102 mmol/L (98-107) Carbon Dioxide Level 28 mmol/L (21-32) Anion Gap 8 (6-14) Blood Urea Nitrogen 21 mg/dL (8-26) Creatinine 1.1 mg/dL (0.7-1.3) Estimated GFR (Cockcroft-Gault) 73.8 Glucose Level 111 mg/dL (70-99) Calcium Level 8.6 mg/dL (8.5-10.1) Problem List Problems Medical Problems: (1) Acute appendicitis Status: Acute Assessment/Plan s/p open appy improving advance diet MAYA DEE MD 12/09/18 1158: SURGICAL PROGRESS NOTE Assessment/Plan pt seen as above home when able to switch to po abx SUNG COLLINS APRN Dec 09, 2018 08:32 MAYA DEE MD Dec 09, 2018 11:58
[2018-12-09 11:00] VITALS: BP 126/87
--- NOTE | 2018-12-09 13:50 | NUR ---
SW following. Discussed with RN, awaiting bowel function, pt on GI soft diet. SW will continue to follow.
--- NOTE | 2018-12-09 14:00 | NUR ---
This nurse taking over for care of pt. Addendum: 12/09/18 at 1917 by IGNACIA JOYA RN This nurse taking over for care of pt. Report obtained from SARA Moreland and Viridiana RN. This nurse to continue care along with SARA Kemp.
[2018-12-09 15:00] VITALS: BP 122/89
[2018-12-09 19:00] VITALS: BP 128/80
--- NOTE | 2018-12-09 19:48 | NUR ---
I agree with the documentation and assessments by SARA Barr.
[2018-12-09] MEDS: SENNOSIDES/DOCUSATE 8.6/50MG TABLET. PO PRN (20:29)
[2018-12-09] MEDS: KETOROLAC 15 MG/ML VIAL. IV PRN (20:30)
[2018-12-09 23:00] VITALS: BP 114/77
[2018-12-09] MEDS: ONDANSETRON PF 4 MG/2 ML VIAL. IV PRN (23:47)
[2018-12-10 03:00] VITALS: BP 137/92
[2018-12-10] MEDS: POTASSIUM CL 20MEQ-0.45% NACL 1,000 ML IV SCH ×2 (04:09→16:32)
[2018-12-10] MEDS: oxyCODONE/APAP 5/325 1 TAB TABLET PO PRN ×4 (04:10→17:22)
[2018-12-10] MEDS: KETOROLAC 15 MG/ML VIAL. IV PRN ×3 (04:10→19:58)
[2018-12-10] MEDS: PIPERACILLIN/TAZOBACTAM 3.375 GM in IV NORMAL SALINE 50ML 50 ML IV SCH ×4 (05:14→23:31)
[2018-12-10 07:00] VITALS: BP 119/83
[2018-12-10] MEDS: LACTOBACILLUS RHAMNOSUS GG 1 CAPSULE. PO SCH ×2 (08:41→19:52)
[2018-12-10] MEDS: POLYETHYLENE GLYCOL 3350 17 GM PACKET. PO SCH ×2 (08:43→20:09)
--- NOTE | 2018-12-10 08:43 | PDOC ---
PROGRESS NOTES Chief Complaint Chief Complaint A/P: Acute appendicitis - s/p open appendectomy Sepsis - likely 2/2 appendicitis with gangrene. Coverage for gram negatives and anaerobes would be appropriate, may go with simply zosyn, e. 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 May have inherited disorder FEN - ADAT per surgery. Unknown if he is at risk of post op ileus PPX - SCDs FULL CODE Inpatient for acute appendicitis and sepsis secondary to this with perforation, this usually causes a 5-7 day stay with perforation, particularly as he had ileus History of Present Illness History of Present Illness Mr Mon is a 42 yo male w/ PMHx recurrent right nephrolithiasis who presents with 1 day history of diffuse abdominal pain worse periumbilical and RLQ who was found with leukocytosis 17.3 with left shift and CT abdomen/pelvis with acute appendicitis. General surgery called by ED and went for lap appy, converted to open 12/06/18 when it was noted to be gangrenous and adherent. 12/07: Pain not much better today. He has appetite, however remains NPO. He wants to get back to work. Has been compliant with abdominal binder when up. Glucose was 137 while NPO this morning. 12/08-12/09: Ambulating a lot, passing flatus, with less pain today. No BM. Abdomen is less distended. No SOB or cough. KUB yesterday showed ileus. Prelim culture shows e. coli Had some pain last night after eating [place] fries. Had multiple BM last night and this morning, feeling less bloated. Pain is only minimally improved. No SOB or CP Plan: A1c 5.2, not even pre-diabetic Zosyn can convert to augmentin on d/c as he is taking PO better. Early cultures show e. coli, likely this will be appropriate treatment, could even downgrade to unasyn most likely if he still needs inpatient ADAT per surgery, will need to avoid feeding too early for risk of ileus. I will defer to the experts on this. If d/c ok with general surgery I have written tramadol and augmentin. Will await surgical recs as he was an open appy and had perforated appendix. Vitals Vitals Vital Signs Date Time Temp Pulse Resp B/P (MAP) Pulse Ox O2 Delivery O2 Flow Rate FiO2 12/10/18 08:42 Room Air 12/10/18 05:16 98 12/10/18 03:00 98.9 67 18 137/92 (107) 98.9 Physical Exam General: Alert, Oriented X3, Cooperative, No acute distress Heart: Regular rate Lungs: Clear Abdomen: Soft, Other (dressing dry, lynda serosang) Extremities: No clubbing, No cyanosis, No edema, Normal pulses, No tenderness/ swelling Skin: Other (warm, dry) Assessment and Plan Assessmemt and Plan Problems Medical Problems: (1) Acute appendicitis Status: Acute Comment Review of Relevant I have reviewed the following items giovana (where applicable) has been applied. Labs Laboratory Tests Test 12/08/18 09:10 White Blood Count 11.6 x10^3/uL (4.0-11.0) Red Blood Count 4.22 x10^6/uL (4.30-5.70) Hemoglobin 13.0 g/dL (13.0-17.5) Hematocrit 39.2 % (39.0-53.0) Mean Corpuscular Volume 93 fL (79-100) Mean Corpuscular Hemoglobin 31 pg (25-35) Mean Corpuscular Hemoglobin Concent 33 g/dL (31-37) Red Cell Distribution Width 13.2 % (11.5-14.5) Platelet Count 232 x10^3/uL (140-400) Neutrophils (%) (Auto) 78 % (31-73) Lymphocytes (%) (Auto) 11 % (24-48) Monocytes (%) (Auto) 8 % (0-9) Eosinophils (%) (Auto) 2 % (0-3) Basophils (%) (Auto) 0 % (0-3) Neutrophils # (Auto) 9.0 x10^3uL (1.8-7.7) Lymphocytes # (Auto) 1.3 x10^3/uL (1.0-4.8) Monocytes # (Auto) 1.0 x10^3/uL (0.0-1.1) Eosinophils # (Auto) 0.2 x10^3/uL (0.0-0.7) Basophils # (Auto) 0.0 x10^3/uL (0.0-0.2) Sodium Level 138 mmol/L (136-145) Potassium Level 3.8 mmol/L (3.5-5.1) Chloride Level 102 mmol/L (98-107) Carbon Dioxide Level 28 mmol/L (21-32) Anion Gap 8 (6-14) Blood Urea Nitrogen 21 mg/dL (8-26) Creatinine 1.1 mg/dL (0.7-1.3) Estimated GFR (Cockcroft-Gault) 73.8 Glucose Level 111 mg/dL (70-99) Calcium Level 8.6 mg/dL (8.5-10.1) Microbiology 12/06/18 Anaerobic/Aerobic Culture, Resulted Pending 12/06/18 Anaerobic Culture Result 1 (SHARLENE), Resulted Pending 12/06/18 Aerobic Culture - Preliminary, Resulted 12/06/18 Aerobic Culture Result 1 (SHARLENE) - Preliminary, Resulted 12/06/18 Aerobic Culture Result 2 (SHARLENE) - Preliminary, Resulted 12/06/18 Gram Stain - Final, Resulted 12/06/18 Gram Stain Result 1 (SHARLENE) - Final, Resulted 12/06/18 Gram Stain Result 2 (SHARLENE) - Final, Resulted Medications Current Medications Sodium Chloride 1,000 ml @ 1,000 mls/hr Q1H IV Last administered on 12/06/18at 09:19; Start 12/06/18 at 08:45; Stop 12/06/18 at 09:44; Status DC Fentanyl Citrate (Fentanyl 2ml Vial) 50 mcg 1X ONCE IV Last administered on 12/06/18at 09:19; Start 12/06/18 at 09:30; Stop 12/06/18 at 09:31; Status DC Ondansetron HCl (Zofran) 4 mg 1X ONCE IV Last administered on 12/06/18at 09:18; Start 12/06/18 at 09:30; Stop 12/06/18 at 09:31; Status DC Iohexol (Omnipaque 300 Mg/ml) 75 ml 1X ONCE IV Last administered on 12/06/18at 09:15; Start 12/06/18 at 09:15; Stop 12/06/18 at 09:16; Status DC Info (CONTRAST GIVEN -- Rx MONITORING) 1 each PRN DAILY PRN MC SEE COMMENTS; Start 12/06/18 at 09:15; Stop 12/08/18 at 09:14; Status DC Fentanyl Citrate (Fentanyl 2ml Vial) 50 mcg 1X ONCE IV Last administered on 12/06/18at 11:11; Start 12/06/18 at 10:45; Stop 12/06/18 at 10:49; Status DC Sodium Chloride 1,000 ml @ 1,000 mls/hr 1X ONCE IV ; Start 12/06/18 at 10:45; Stop 12/06/18 at 11:44; Status DC Piperacillin Sod/ Tazobactam Sod 3.375 gm/Sodium Chloride 50 ml @ 100 mls/hr 1X ONCE IV Last administered on 12/06/18at 10:59; Start 12/06/18 at 11:00; Stop 12/06/18 at 11:29; Status DC Ondansetron HCl (Zofran) 4 mg PRN Q8HRS PRN IV NAUSEA/VOMITING Last administered on 12/06/18at 16:26; Start 12/06/18 at 11:00; Stop 12/07/18 at 10:59; Status DC Fentanyl Citrate (Fentanyl 2ml Vial) 50 mcg PRN Q1HR PRN IV PAIN Last administered on 12/07/18at 10:43; Start 12/06/18 at 11:00; Stop 12/07/18 at 10:59; Status DC Sodium Chloride 1,000 ml @ 80 mls/hr [id number] IV Last administered on 12/06/18at 11:09; Start 12/06/18 at 10:49; Stop 12/07/18 at 10:48; Status DC Metronidazole 100 ml @ 100 mls/hr 1X PREOP PRN IV protocol Last administered on 12/06/18at 18:49; Start 12/07/18 at 06:00; Stop 12/07/18 at 18:00; Status DC Fentanyl Citrate (Fentanyl 2ml Vial) 100 mcg STK-MED ONCE .ROUTE ; Start at 18:25; Stop 12/06/18 at 18:26; Status DC Rocuronium [place] (Zemuron) 50 mg STK-MED ONCE .ROUTE ; Start 12/06/18 at 18:25 ; Stop 12/06/18 at 18:26; Status DC Propofol 20 ml @ As Directed STK-MED ONCE IV ; Start 12/06/18 at 18:25; Stop 12/06 at 18:26; Status DC Lidocaine HCl (Lidocaine Pf 2% Vial) 5 ml STK-MED ONCE .ROUTE ; Start 12/06/18 at 18:25; Stop 12/06/18 at 18:26; Status DC Desflurane (Suprane) 30 ml STK-MED ONCE IH ; Start 12/06/18 at 18:25; Stop at 18:26; Status DC Dexamethasone Sodium Phosphate (Decadron) 20 mg STK-MED ONCE .ROUTE ; Start 12/06 at 18:25; Stop 12/06/18 at 18:26; Status DC Ondansetron HCl (Zofran) 4 mg STK-MED ONCE .ROUTE ; Start 12/06/18 at 18:26; Stop 12/06/18 at 18:27; Status DC Ketorolac Tromethamine (Toradol For Or Only) 30 mg STK-MED ONCE INJ ; Start 12/06 at 18:26; Stop 12/06/18 at 18:27; Status DC Bupivacaine HCl/ Epinephrine Bitart (Sensorcain-Mpf Epi 0.5%-1:[id number]) 30 ml STK -MED ONCE .ROUTE Last administered on 12/06/18at 18:50; Start 12/06/18 at 18:28; Stop 12/06/18 at 18:29; Status DC Neostigmine Methylsulfate (Bloxiverz) 10 mg STK-MED ONCE .ROUTE ; Start 12/06/18 at 18:59; Stop 12/06/18 at 19:00; Status DC Glycopyrrolate (Robinul) 1 mg STK-MED ONCE .ROUTE ; Start 12/06/18 at 18:59; Stop 12/06/18 at 19:00; Status DC Lidocaine HCl (Lidocaine Pf 2% Vial) 5 ml STK-MED ONCE .ROUTE ; Start 12/06/18 at 20:00; Stop 12/06/18 at 20:01; Status DC Enoxaparin Sodium (Lovenox 40mg Syringe) 40 mg Q24H SQ Last administered on 12/09at 08:20; Start 12/07/18 at 09:00 Sodium Chloride (Normal Saline Flush) 3 ml QSHIFT PRN IV AFTER MEDS AND BLOOD DRAWS; Start 12/06/18 at 20:15 Potassium Chloride/Sodium Chloride 1,000 ml @ 100 mls/hr Q10H IV Last administered on 12/10/18 04:09; Start 12/06/18 at 20:08 Oxycodone/ Acetaminophen (Percocet 5/325) 1 tab PRN Q4HRS PRN PO MILD PAIN, 1ST CHOICE Last administered on 12/10/18 08:42; Start 12/06/18 at 20:15 Oxycodone/ Acetaminophen (Percocet 5/325) 2 tab PRN Q4HRS PRN PO MODERATE PAIN , SEVERE PAIN Last administered on 12/09/18 20:30; Start 12/06/18 at 20:15 Hydromorphone HCl (Dilaudid) 1 mg PRN Q3HRS PRN IV MODERATE PAIN Last administered on 12/07/18 22:38; Start 12/06/18 at 20:15 Ondansetron HCl (Zofran) 4 mg PRN Q6HRS PRN IV NAUESA, 1ST CHOICE Last administered on 12/09/18 23:47; Start 12/06/18 at 20:15 Piperacillin Sod/ Tazobactam Sod 3.375 gm/Sodium Chloride 50 ml @ 100 mls/hr Q6HRS IV Last administered on 12/10/18 05:14; Start 12/06/18 at 21:00 Ondansetron HCl (Zofran) 4 mg PRN Q6HRS PRN IV NAUSEA/VOMITING; Start 12/06/18 at 20:45; Stop 12/07/18 at 04:00; Status DC Fentanyl Citrate (Fentanyl 2ml Vial) 25 mcg PRN Q5MIN PRN IV MILD PAIN; Start 12/06/18 at 20:45; Stop 12/07/18 at 04:00; Status DC Fentanyl Citrate (Fentanyl 2ml Vial) 50 mcg PRN Q5MIN PRN IV MODERATE TO SEVERE PAIN Last administered on 12/06/18at 20:57; Start 12/06/18 at 20:45; Stop at 04:00; Status DC Morphine Sulfate (Morphine Sulfate) 1 mg PRN Q10MIN PRN IV SEVERE PAIN; Start 12/06/18 at 20:45; Stop 12/07/18 at 20:44; Status DC Ringer's Solution 1,000 ml @ 30 mls/hr Q24H IV Last administered on 12/06/18at 20:48; Start 12/06/18 at 20:32; Stop 12/07/18 at 08:31; Status DC Lidocaine HCl (Xylocaine-Mpf 1% 2ml Vial) 2 ml 1X PRN PRN ID IV START; Start at 20:45; Stop 12/07/18 at 04:00; Status DC Hydromorphone HCl (Dilaudid) 0.5 mg PRN Q10MIN PRN IV SEV PAIN, Second choice; Start 12/06/18 at 20:45; Stop 12/07/18 at 04:00; Status DC Prochlorperazine Edisylate (Compazine) 5 mg PACU PRN PRN IV NAUSEA, MRX1; Start 12/06/18 at 20:45; Stop 12/07/18 at 04:00; Status DC Lactobacillus Rhamnosus (Culturelle) 1 cap BID PO Last administered on 08:41; Start 12/07/18 at 21:00 Ketorolac Tromethamine (Toradol 15mg Vial) 15 mg PRN Q6HRS PRN IV MILD PAIN Last administered on 12/10/18 04:10; Start 12/07/18 at 23:15; Stop 12/12/18 at 23 :14 Hydromorphone HCl (Dilaudid) 2 mg PRN Q3HRS PRN IV PAIN SEVERE Last administered on 12/09/18 04:17; Start 12/07/18 at 23:15 Senna/Docusate Sodium (Senna Plus) 2 tab PRN BID PRN PO CONSTIPATION Last administered on 12/09/18 20:29; Start 12/08/18 at 12:30 Polyethylene Glycol (miraLAX PACKET) 17 gm BID PO Last administered on 20:29; Start 12/08/18 at 13:00 Diphenhydramine HCl (Benadryl) 25 mg PRN QHS PRN IVP ITCHING Last administered on 12/09/18 23:47; Start 12/08/18 at 14:30 Vitals/I & O Vital Sign - Last 24 Hours 12/09/18 12/09/18 12/09/18 12/09/18 11:00 11:50 15:00 16:30 Temp 97.8 97.6 97.8 97.6 Pulse 71 74 Resp 18 18 B/P (MAP) 126/87 (100) 122/89 (100) Pulse Ox 94 94 O2 Delivery Room Air Room Air Room Air Room Air 12/09/18 12/09/18 12/09/18 12/09/18 19:00 20:10 20:30 23:00 Temp 98.5 98.6 98.5 98.6 Pulse 74 68 Resp 18 18 B/P (MAP) 128/80 (96) 114/77 (89) Pulse Ox 92 94 O2 Delivery Room Air Room Air Room Air Room Air 12/09/18 12/10/18 12/10/18 12/10/18 23:54 03:00 04:10 05:16 Temp 98.9 98.9 Pulse 67 Resp 18 B/P (MAP) 137/92 (107) Pulse Ox 94 98 98 O2 Delivery Room Air Room Air Room Air Room Air 12/10/18 08:42 O2 Delivery Room Air Intake and Output 12/09/18 12/09/18 12/10/18 14:59 22:59 06:59 Intake Total 1200 ml Output Total 210 ml 120 ml Balance 990 ml -120 ml ARI LEVY MD Dec 10, 2018 08:43
[2018-12-10] MEDS: ENOXAPARIN 40 MG/0.4 ML SYRINGE. SQ SCH (08:45)
[2018-12-10] MEDS ORDERED: AMOX1TAB61 PO (10:44)
[2018-12-10] MEDS ORDERED: TRAM50TA PO (10:44)
[2018-12-10 11:00] VITALS: BP 120/88
--- NOTE | 2018-12-10 11:43 | PDOC ---
SURGICAL PROGRESS NOTE Subjective up to bedside chair has had flatus, stool adequate pain control Vital Signs Vital Signs Date Time Temp Pulse Resp B/P (MAP) Pulse Ox O2 Delivery O2 Flow Rate FiO2 12/10/18 09:42 Room Air 12/10/18 07:00 98.3 77 18 119/83 (95) 94 98.3 I&O Intake and Output 12/10/18 06:59 Intake Total 1200 ml Output Total 330 ml Balance 870 ml IV Total 1200 ml Drainage Total 330 ml # Voids 7 PATIENT HAS A HILARIO: No General: Alert, No acute distress Abdomen: Soft, Other (incision with anuj, ROBINSON with serosanguineous output) Problem List Problems Medical Problems: (1) Acute appendicitis Status: Acute Assessment/Plan POD 5 open appy for gangrenous, perforated appendicitis cont abx anuj removed ambulate MAYA DEE MD Dec 10, 2018 11:43
--- NOTE | 2018-12-10 13:32 | NUR ---
SW following. Physician reported pt could dc if cleared by Sx. SW followed up with RN and Sx wants to keep pt one more day. Physician notified.
[2018-12-10] MEDS: HYDROmorphone 2 MG/ML VIAL IV PRN ×2 (14:00→23:26)
[2018-12-10 15:00] VITALS: BP 128/80
[2018-12-10 19:00] VITALS: BP 126/84
[2018-12-10 23:00] VITALS: BP 110/74
[2018-12-11 03:00] VITALS: BP 123/84
[2018-12-11] MEDS: KETOROLAC 15 MG/ML VIAL. IV PRN (04:59)
[2018-12-11] MEDS: PIPERACILLIN/TAZOBACTAM 3.375 GM in IV NORMAL SALINE 50ML 50 ML IV SCH ×2 (05:10→10:57)
[2018-12-11 07:00] VITALS: BP 131/90
--- NOTE | 2018-12-11 07:30 | PDOC ---
PROGRESS NOTES Chief Complaint Chief Complaint A/P: Acute appendicitis - s/p open appendectomy Sepsis - likely 2/2 appendicitis with gangrene. Coverage for gram negatives and anaerobes would be appropriate, may go with simply zosyn, e. 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 May have inherited disorder FEN - ADAT per surgery. Unknown if he is at risk of post op ileus PPX - SCDs FULL CODE Inpatient for acute appendicitis and sepsis secondary to this with perforation, this usually causes a 5-7 day stay with perforation, particularly as he had ileus History of Present Illness History of Present Illness Mr Mon is a 42 yo male w/ PMHx recurrent right nephrolithiasis who presents with 1 day history of diffuse abdominal pain worse periumbilical and RLQ who was found with leukocytosis 17.3 with left shift and CT abdomen/pelvis with acute appendicitis. General surgery called by ED and went for lap appy, converted to open 12/06/18 when it was noted to be gangrenous and adherent. 12/07: Pain not much better today. He has appetite, however remains NPO. He wants to get back to work. Has been compliant with abdominal binder when up. Glucose was 137 while NPO this morning. 12/08-12/09: Ambulating a lot, passing flatus, with less pain today. No BM. Abdomen is less distended. No SOB or cough. KUB yesterday showed ileus. Prelim culture shows e. coli Had some pain last night after eating [place] fries. Had multiple BM last night and this morning, feeling less bloated. Pain is only minimally improved. No SOB or CP. Ecoli cultures back Plan: A1c 5.2, not even pre-diabetic Zosyn can convert to augmentin on d/c as he is taking PO better. cultures show e. coli, sensitive to augmentin ADAT per surgery, will need to avoid feeding too early for risk of ileus. I will defer to the experts on this. If d/c ok with general surgery I have written tramadol and augmentin. Will await surgical recs as he was an open appy and had perforated appendix. Vitals Vitals Vital Signs Date Time Temp Pulse Resp B/P (MAP) Pulse Ox O2 Delivery O2 Flow Rate FiO2 12/11/18 03:00 98.3 61 18 123/84 (97) 95 Room Air 98.3 12/10/18 23:26 2.0 Physical Exam General: Alert, No acute distress Heart: Regular rate Lungs: Clear Abdomen: Soft, Other (incision with anuj, ROBINSON with serosanguineous output) Extremities: No clubbing, No cyanosis, No edema, Normal pulses, No tenderness/ swelling Skin: Other (warm, dry) Assessment and Plan Assessmemt and Plan Problems Medical Problems: (1) Acute appendicitis Status: Acute Comment Review of Relevant I have reviewed the following items giovana (where applicable) has been applied. Labs Microbiology 12/06/18 Anaerobic/Aerobic Culture, Resulted Pending 12/06/18 Anaerobic Culture Result 1 (SHARLENE), Resulted Pending 12/06/18 Aerobic Culture - Final, Resulted 12/06/18 Aerobic Culture Result 1 (SHARLENE) - Final, Resulted 12/06/18 Aerobic Culture Result 2 (SHARLENE) - Final, Resulted 12/06/18 Gram Stain - Final, Resulted 12/06/18 Gram Stain Result 1 (SHARLENE) - Final, Resulted 12/06/18 Gram Stain Result 2 (SHARLENE) - Final, Resulted Medications Current Medications Sodium Chloride 1,000 ml @ 1,000 mls/hr Q1H IV Last administered on 12/06/18at 09:19; Start 12/06/18 at 08:45; Stop 12/06/18 at 09:44; Status DC Fentanyl Citrate (Fentanyl 2ml Vial) 50 mcg 1X ONCE IV Last administered on 09:19; Start 12/06/18 at 09:30; Stop 12/06/18 at 09:31; Status DC Ondansetron HCl (Zofran) 4 mg 1X ONCE IV Last administered on 12/06/18 09:18; Start 12/06/18 at 09:30; Stop 12/06/18 at 09:31; Status DC Iohexol (Omnipaque 300 Mg/ml) 75 ml 1X ONCE IV Last administered on 12/06/18at 09:15; Start 12/06/18 at 09:15; Stop 12/06/18 at 09:16; Status DC Info (CONTRAST GIVEN -- Rx MONITORING) 1 each PRN DAILY PRN MC SEE COMMENTS; Start 12/06/18 at 09:15; Stop 12/08/18 at 09:14; Status DC Fentanyl Citrate (Fentanyl 2ml Vial) 50 mcg 1X ONCE IV Last administered on 12/06/18at 11:11; Start 12/06/18 at 10:45; Stop 12/06/18 at 10:49; Status DC Sodium Chloride 1,000 ml @ 1,000 mls/hr 1X ONCE IV ; Start 12/06/18 at 10:45; Stop 12/06/18 at 11:44; Status DC Piperacillin Sod/ Tazobactam Sod 3.375 gm/Sodium Chloride 50 ml @ 100 mls/hr 1X ONCE IV Last administered on 12/06/18at 10:59; Start 12/06/18 at 11:00; Stop 12/06/18 at 11:29; Status DC Ondansetron HCl (Zofran) 4 mg PRN Q8HRS PRN IV NAUSEA/VOMITING Last administered on 12/06/18at 16:26; Start 12/06/18 at 11:00; Stop 12/07/18 at 10:59; Status DC Fentanyl Citrate (Fentanyl 2ml Vial) 50 mcg PRN Q1HR PRN IV PAIN Last administered on 12/07/18at 10:43; Start 12/06/18 at 11:00; Stop 12/07/18 at 10:59; Status DC Sodium Chloride 1,000 ml @ 80 mls/hr [id number] IV Last administered on 12/06/18at 11:09; Start 12/06/18 at 10:49; Stop 12/07/18 at 10:48; Status DC Metronidazole 100 ml @ 100 mls/hr 1X PREOP PRN IV protocol Last administered on 12/06/18at 18:49; Start 12/07/18 at 06:00; Stop 12/07/18 at 18:00; Status DC Fentanyl Citrate (Fentanyl 2ml Vial) 100 mcg STK-MED ONCE .ROUTE ; Start at 18:25; Stop 12/06/18 at 18:26; Status DC Rocuronium [place] (Zemuron) 50 mg STK-MED ONCE .ROUTE ; Start 12/06/18 at 18:25 ; Stop 12/06/18 at 18:26; Status DC Propofol 20 ml @ As Directed STK-MED ONCE IV ; Start 12/06/18 at 18:25; Stop 12/06 at 18:26; Status DC Lidocaine HCl (Lidocaine Pf 2% Vial) 5 ml STK-MED ONCE .ROUTE ; Start 12/06/18 at 18:25; Stop 12/06/18 at 18:26; Status DC Desflurane (Suprane) 30 ml STK-MED ONCE IH ; Start 12/06/18 at 18:25; Stop at 18:26; Status DC Dexamethasone Sodium Phosphate (Decadron) 20 mg STK-MED ONCE .ROUTE ; Start 12/06 at 18:25; Stop 12/06/18 at 18:26; Status DC Ondansetron HCl (Zofran) 4 mg STK-MED ONCE .ROUTE ; Start 12/06/18 at 18:26; Stop 12/06/18 at 18:27; Status DC Ketorolac Tromethamine (Toradol For Or Only) 30 mg STK-MED ONCE INJ ; Start 12/06 at 18:26; Stop 12/06/18 at 18:27; Status DC Bupivacaine HCl/ Epinephrine Bitart (Sensorcain-Mpf Epi 0.5%-1:[id number]) 30 ml STK -MED ONCE .ROUTE Last administered on 12/06/18at 18:50; Start 12/06/18 at 18:28; Stop 12/06/18 at 18:29; Status DC Neostigmine Methylsulfate (Bloxiverz) 10 mg STK-MED ONCE .ROUTE ; Start 12/06/18 at 18:59; Stop 12/06/18 at 19:00; Status DC Glycopyrrolate (Robinul) 1 mg STK-MED ONCE .ROUTE ; Start 12/06/18 at 18:59; Stop 12/06/18 at 19:00; Status DC Lidocaine HCl (Lidocaine Pf 2% Vial) 5 ml STK-MED ONCE .ROUTE ; Start 12/06/18 at 20:00; Stop 12/06/18 at 20:01; Status DC Enoxaparin Sodium (Lovenox 40mg Syringe) 40 mg Q24H SQ Last administered on 12/10at 08:45; Start 12/07/18 at 09:00 Sodium Chloride (Normal Saline Flush) 3 ml QSHIFT PRN IV AFTER MEDS AND BLOOD DRAWS; Start 12/06/18 at 20:15 Potassium Chloride/Sodium Chloride 1,000 ml @ 50 mls/hr Q20H IV Last administered on 12/10/18 16:32; Start 12/06/18 at 20:08 Oxycodone/ Acetaminophen (Percocet 5/325) 1 tab PRN Q4HRS PRN PO MILD PAIN, 1ST CHOICE Last administered on 12/10/18 17:22; Start 12/06/18 at 20:15 Oxycodone/ Acetaminophen (Percocet 5/325) 2 tab PRN Q4HRS PRN PO MODERATE PAIN , SEVERE PAIN Last administered on 12/09/18 20:30; Start 12/06/18 at 20:15 Hydromorphone HCl (Dilaudid) 1 mg PRN Q3HRS PRN IV MODERATE PAIN Last administered on 12/10/18 23:26; Start 12/06/18 at 20:15 Ondansetron HCl (Zofran) 4 mg PRN Q6HRS PRN IV NAUESA, 1ST CHOICE Last administered on 12/09/18 23:47; Start 12/06/18 at 20:15 Piperacillin Sod/ Tazobactam Sod 3.375 gm/Sodium Chloride 50 ml @ 100 mls/hr Q6HRS IV Last administered on 12/11/18at 05:10; Start 12/06/18 at 21:00 Ondansetron HCl (Zofran) 4 mg PRN Q6HRS PRN IV NAUSEA/VOMITING; Start 12/06/18 at 20:45; Stop 12/07/18 at 04:00; Status DC Fentanyl Citrate (Fentanyl 2ml Vial) 25 mcg PRN Q5MIN PRN IV MILD PAIN; Start 12/06/18 at 20:45; Stop 12/07/18 at 04:00; Status DC Fentanyl Citrate (Fentanyl 2ml Vial) 50 mcg PRN Q5MIN PRN IV MODERATE TO SEVERE PAIN Last administered on 12/06/18 20:57; Start 12/06/18 at 20:45; Stop at 04:00; Status DC Morphine Sulfate (Morphine Sulfate) 1 mg PRN Q10MIN PRN IV SEVERE PAIN; Start 12/06/18 at 20:45; Stop 12/07/18 at 20:44; Status DC Ringer's Solution 1,000 ml @ 30 mls/hr Q24H IV Last administered on 12/06/18 20:48; Start 12/06/18 at 20:32; Stop 12/07/18 at 08:31; Status DC Lidocaine HCl (Xylocaine-Mpf 1% 2ml Vial) 2 ml 1X PRN PRN ID IV START; Start at 20:45; Stop 12/07/18 at 04:00; Status DC Hydromorphone HCl (Dilaudid) 0.5 mg PRN Q10MIN PRN IV SEV PAIN, Second choice; Start 12/06/18 at 20:45; Stop 12/07/18 at 04:00; Status DC Prochlorperazine Edisylate (Compazine) 5 mg PACU PRN PRN IV NAUSEA, MRX1; Start 12/06/18 at 20:45; Stop 12/07/18 at 04:00; Status DC Lactobacillus Rhamnosus (Culturelle) 1 cap BID PO Last administered on at 19:52; Start 12/07/18 at 21:00 Ketorolac Tromethamine (Toradol 15mg Vial) 15 mg PRN Q6HRS PRN IV MILD PAIN Last administered on 12/11/18 04:59; Start 12/07/18 at 23:15; Stop 12/12/18 at 23:14 Hydromorphone HCl (Dilaudid) 2 mg PRN Q3HRS PRN IV PAIN SEVERE Last administered on 12/09/18 04:17; Start 12/07/18 at 23:15 Senna/Docusate Sodium (Senna Plus) 2 tab PRN BID PRN PO CONSTIPATION Last administered on 12/09/18 20:29; Start 12/08/18 at 12:30 Polyethylene Glycol (miraLAX PACKET) 17 gm BID PO Last administered on 20:29; Start 12/08/18 at 13:00 Diphenhydramine HCl (Benadryl) 25 mg PRN QHS PRN IVP ITCHING Last administered on 12/09/18 23:47; Start 12/08/18 at 14:30 Active Scripts Active Tramadol Hcl 50 Mg Tablet 50 Mg PO Q6HRS PRN 6 Days Augmentin 875-125 Tablet (Amoxicillin/Potassium Clav) 1 Each Tablet 1 Tab PO BID 7 Days Vitals/I & O Vital Sign - Last 24 Hours 12/10/18 12/10/18 12/10/18 12/10/18 08:00 08:42 11:00 12:52 Temp 98.7 98.7 Pulse 81 Resp 18 B/P (MAP) 120/88 (99) Pulse Ox 96 O2 Delivery Room Air Room Air Room Air Room Air 12/10/18 12/10/18 12/10/18 12/10/18 14:00 15:00 17:22 18:22 Temp 98.3 98.3 Pulse 75 Resp 18 B/P (MAP) 128/80 (96) Pulse Ox 92 O2 Delivery Room Air Room Air Room Air Room Air 12/10/18 12/10/18 12/10/18 12/10/18 19:00 20:00 23:00 23:26 Temp 98.4 98.3 98.4 98.3 Pulse 71 70 Resp 18 18 20 B/P (MAP) 126/84 (98) 110/74 (86) Pulse Ox 94 94 94 O2 Delivery Room Air Room Air Room Air Room Air O2 Flow Rate 2.0 12/10/18 12/11/18 23:56 03:00 Temp 98.3 98.3 Pulse 61 Resp 20 18 B/P (MAP) 123/84 (97) Pulse Ox 95 95 O2 Delivery Room Air Room Air Intake and Output 12/10/18 12/10/18 12/11/18 15:00 23:00 07:00 Intake Total 200 ml Balance 200 ml ARI LEVY MD Dec 11, 2018 07:30
[2018-12-11] MEDS: POLYETHYLENE GLYCOL 3350 17 GM PACKET. PO SCH (08:29)
[2018-12-11] MEDS: LACTOBACILLUS RHAMNOSUS GG 1 CAPSULE. PO SCH (08:30)
[2018-12-11] MEDS: ENOXAPARIN 40 MG/0.4 ML SYRINGE. SQ SCH (08:30)
--- NOTE | 2018-12-11 08:52 | PDOC3 ---
Discharge Summary Visit Information Date of Admission: Dec 06, 2018 Date of Discharge: Dec 11, 2018 Admitting Diagnosis: Acute perforated appendicitis Final Diagnosis Problems Medical Problems: (1) Acute appendicitis Status: Acute Brief Hospital Course Allergies Allergies Coded Allergies Type Severity Reaction Last Updated Verified No Known Drug Allergies 12/06/18 No Vital Signs Vital Signs Date Time Temp Pulse Resp B/P (MAP) Pulse Ox O2 Delivery O2 Flow Rate FiO2 12/11/18 07:00 98.2 77 16 131/90 (104) 94 Room Air 98.2 12/10/18 23:26 2.0 Brief Hospital Course Mr Mon is a 42 yo male w/ PMHx recurrent right nephrolithiasis who presents with 1 day history of diffuse abdominal pain worse periumbilical and RLQ who was found with leukocytosis 17.3 with left shift and CT abdomen/pelvis with acute appendicitis. General surgery called by ED and went for lap appy, converted to open 12/06/18 when it was noted to be gangrenous and adherent. 12/07: Pain not much better today. He has appetite, however remains NPO. He wants to get back to work. Has been compliant with abdominal binder when up. Glucose was 137 while NPO this morning. 12/08-12/09: Ambulating a lot, passing flatus, with less pain today. No BM. Abdomen is less distended. No SOB or cough. KUB yesterday showed ileus. Prelim culture shows e. coli 12/10: Had some pain last night after eating italian fries. Had multiple BM last night and this morning, feeling less bloated. Pain is only minimally improved. No SOB or CP. Ecoli cultures back Still rather distended, but with good BM, ambulating well, no fevers or leukocytosis, cultures sensitive e. coli to augmentin, was on zosyn 5 days, will continue 1 week augmentin with strict instructions for return if he develops fever, intractable nausea and vomiting, site infection. No heavy lifting for 1-2 weeks. Plan: A1c 5.2, not even pre-diabetic Zosyn can convert to augmentin on d/c as he is taking PO better. cultures show e. coli, sensitive to augmentin ADAT per surgery, will need to avoid feeding too early for risk of ileus. I will defer to the experts on this. If d/c ok with general surgery I have written tramadol and augmentin. Will await surgical recs as he was an open appy and had perforated appendix. Acute appendicitis - s/p open appendectomy Sepsis - likely 2/2 appendicitis with gangrene. Coverage for gram negatives and anaerobes would be appropriate, may go with simply zosyn, e. 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 May have inherited disorder Greater than 30 minutes spent on discharge including f/u instructions and medications, translation from Persian to Yakut Discharge Information Condition at Discharge: Improved Follow Up: Weeks (2) Disposition/Orders: D/C to Home Scheduled Amoxicillin/Potassium Clav (Augmentin 875-125 Tablet) 1 Each Tablet, 1 TAB PO BID for Appendicitis for 7 Days, #14 Prescribed by: ARI LEVY MD on 12/10/18 1044 Scheduled PRN Tramadol Hcl (Tramadol Hcl) 50 Mg Tablet, 50 MG PO Q6HRS PRN for PAIN for 6 Days , #24 Prescribed by: ARI LEVY MD on 12/10/18 1044 ARI LEVY MD Dec 11, 2018 08:52
--- NOTE | 2018-12-11 09:25 | PDOC ---
Provider Note Provider Note SURG POD 5 VSS taking po pain controlled home today f/u in office 12/16 MAYA DEE MD Dec 11, 2018 09:24
[2018-12-11] MEDS: oxyCODONE/APAP 5/325 1 TAB TABLET PO PRN (09:37)
[2018-12-11] MEDS: POTASSIUM CL 20MEQ-0.45% NACL 1,000 ML IV SCH (10:51)
[2018-12-11 11:00] VITALS: BP 123/79
--- NOTE | 2018-12-11 14:54 | NUR ---
Pt was given dc packet. Rx for pain, antibiotics, and stool softener. Pt and friend were instructed on how to change the dressing. They were given wound care supplies. Pt is to f/u with MD on Wednesday. Pt was also given print out info. on sx procedure and on how to change dressing. No questions asked. Pt was escorted to Er entrance at 1405 by the MIKAYLA Abdi.
== END 2018-12-11 14:05 | disposition home or self-care (01) | DRG 853 ==
LOC: ER 08:12 → 4 NORTH 10:47
PROVIDERS: ADMIT Internal Medicine; ATTEND Internal Medicine
PROC: 0DJD4ZZ Inspection of Lower Intestinal Tract, Percutaneous Endoscopic Approach (ICD-10-PCS; 2018-12-06)
PROC: 0DTJ0ZZ Resection of Appendix, Open Approach (ICD-10-PCS; principal; 2018-12-06 17:00)
DX: A41.9 Sepsis, unspecified organism (principal); K35.33 Acute appendicitis with perforation, localized peritonitis, and gangrene, with abscess; B96.20 Unspecified Escherichia coli [E. coli] as the cause of diseases classified elsewhere; N20.0 Calculus of kidney; Z82.49 Family history of ischemic heart disease and other diseases of the circulatory system; Z53.31 Laparoscopic surgical procedure converted to open procedure; Z87.442 Personal history of urinary calculi; Z79.899 Other long term (current) drug therapy
CPT/HCPCS: 36415; 74018; 74177; 80048; 80053; 81001; 83036; 83690; 85007; 85025; 87071; 87075; 87186; 88304; 96374; 96375; 96376; A7015; J1100; J1170; J1200; J1650; J1885; J2001; J2405; J2543; J2704; J2710; J3010; J3490; J7030; J7120; Q9967; 99285-25